=== PATIENT | male | born 1950 | race Two or more races ===

== ENCOUNTER 2024-06-11 11:59 | Emergency (ER) | payer MEDICARE, MEDICAID, SELFPAY ==
[2024-06-11 11:59] VITALS: BMI 34.7
[2024-06-11 12:17] VITALS: BP 170/74; PULSE 59; RESP 18; TEMP 36.7; O2SAT 95; BMI 32.3
--- NOTE | 2024-06-11 14:03 | EDNOTE_ITS ---
<Statement entered by Radha Sen MD - 06/13/24 15:27> As co-signing physician, I was present and available for consult prn. I concur with the plan and care as documented by the midlevel provider. Lower Extremity Injury RME/HPI General Chief Complaint: Extremity Injury, Lower Stated Complaint: RT LEG ABRASION LACERATION Time Seen by Provider: 06/11/24 12:00 Arrival date/time: 06/11/24 11:59 74-year-old male presents to the emergency department today complains of laceration abrasion to right lower extremity patient scraped his leg on a bed frame unknown last tetanus Limitations: no limitations Related Data Home Medications ?Medication ?Instructions ?Recorded ?Confirmed linagliptin 5 mg tablet (Tradjenta) 5 mg PO QDAY 07/13/17 08/14/22 aspirin 81 mg tablet,delayed 81 mg PO DAILY 09/10/17 08/14/22 release (Jaylyn Low Dose Aspirin) glimepiride 4 mg tablet 4 mg PO QDAY 10/08/20 08/14/22 lovastatin 20 mg tablet 20 mg PO HS 10/08/20 08/14/22 albuterol sulfate 90 mcg/actuation 2 inh inhalation DAILY PRN 03/16/22 08/14/22 aerosol inhaler Shortness Of Breath Or Wheezing dapagliflozin propanediol 5 mg 5 mg PO DAILY 03/16/22 08/14/22 tablet (Farxiga) doxazosin 2 mg tablet 2 mg PO HS 03/16/22 08/14/22 finerenone 10 mg tablet (Kerendia) 10 mg PO DAILY 03/16/22 08/14/22 insulin degludec 100 unit/mL (3 See Rx Instructions .Route .COMPLEX 03/16/22 08/14/22 mL) subcutaneous pen (Tresiba FlexTouch U-100 insulin) pregabalin 50 mg capsule 50 mg PO BID 03/16/22 08/14/22 Previous Rx's ?Medication ?Instructions ?Recorded metoclopramide HCl 5 mg tablet 5 mg PO BID #60 tabs 05/18/22 (Reglan) pantoprazole 40 mg tablet,delayed 40 mg PO BID #60 tabs 05/18/22 release (Protonix) amoxicillin 875 mg-potassium 1 tab PO BID #20 tabs 08/10/22 clavulanate 125 mg tablet cephalexin 500 mg capsule 500 mg PO BID 7 days #14 caps 06/11/24 Allergies Allergy/AdvReac Type Severity Reaction Status Date / Time No Known Allergies Allergy Verified 06/11/24 12:01 Review of Systems Review of Systems Systems Reviewed: All systems reviewed, normal except as documented Constitutional Constitutional: Reports system reviewed and no additional complaints, except as documented, Denies fever(s) and Denies headache(s) Eyes Eyes: Reports system reviewed and no additional complaints, except as documented and Denies blurry vision ENT Ears, Nose, Mouth, and Throat: Reports system reviewed and no additional complaints, except as documented, Denies headache(s), Denies nasal congestion and Denies nasal discharge Cardiovascular Cardiovascular: Reports system reviewed and no additional complaints, except as documented, Denies chest pain and Denies dyspnea Respiratory Respiratory: Reports system reviewed and no additional complaints, except as documented, Denies chest congestion, Denies cough and Denies dyspnea Gastrointestinal Gastrointestinal: Reports system reviewed and no additional complaints, except as documented and Denies abdominal pain Integumentary/Breasts Skin/Breast: Reports system reviewed and no additional complaints, except as documented, Denies rash and Reports wounds (Laceration, abrasion right lower extremity) Neurologic Neurologic: Reports system reviewed and no additional complaints, except as documented, Reports as per HPI and Denies headache(s) Past Medical History Past Medical History NEUROLOGIC: Positive Peripheral Neuropathy; Negative Neurological Disorders, Cerebrovascular Accident, Transient Ischemic Attacks (TIA), Dementia, Alzheimer's Disease, Parkinson's Disease, Brain Tumor, Meningitis, Seizures, Epilepsy, Multiple Sclerosis, Cerebral Palsy, Amyotrophic Lateral Sclerosis (ALS/Suki Gehrig's), Guillain-Coy Syndrome, Spina Bifida, Paralysis, Lee's Palsy, Subdural Hematoma, Migraine, Head Trauma, Spinal Cord Injury or Traumatic Brain Injury CARDIAC: Positive Cardiac Disorders, Hypercholesterolemia and Hypertension; Negative Myocardial Infarction, Cardiac Arrhythmia, Atrial Fibrillation, Angina, Heart Murmur, Coronary Artery Disease, Atherosclerotic Heart Disease, Peripheral Vascular Disease, Aneurysm, Congestive Heart Failure, Congenital Heart Disease, Valvular Heart Disease, Rheumatic Fever, Cardiomyopathy, Edema, Pericarditis, Cellulitis, Deep Vein Thrombosis, Hypotension or Varicose Veins RESPIRATORY: Negative Chronic Obstructive Pulmonary Disease (COPD) or Asthma GASTROINTESTINAL: Positive Gastrointestinal Disorders and Obesity; Negative Hepatitis, Cirrhosis, Pancreatitis, Celiac Disease, Gall Bladder Disease, Gastrointestinal Bleed, Esophageal Varices, Osuna's Esophagus, Colitis, Ulcerative Colitis, Diverticulitis, Diverticulosis, Ulcer, Colorectal Cancer, Irritable Bowel, Crohn's Disease, Obstructive Bowel, Hiatal Hernia, Hemorrhoids or Gastroesophageal Reflux Disease GENITOURINARY: Positive Genitourinary Disorders, Renal Disease and Inguinal Hernia; Negative Kidney Stones, Polycystic Kidney Disease, Neurogenic Bladder, Dialysis, Prostate Cancer or Benign Prostatic Hyperplasia REPRODUCTIVE: Negative Testicular Cancer MUSCULOSKELETAL: Positive Musculoskeletal Disorders, Arthritis and Degenerative Disk Disease; Negative Muscular Dystrophy, Myasthenia Gravis, Marfan's Syndrome, Bone Cancer, Rheumatoid Arthritis, Osteoporosis, Gout, Scoliosis, Carpal Tunnel Syndrome, Fibromyalgia, Fractures, Degenerative Joint Disease, Osteomyelitis or Poliovirus ENT: Negative Cataracts, Glaucoma, Blind, Retinal Detachment, Macular Degeneration, Ear Infection, Deafness, Head Trauma or Eye Prosthesis ENDOCRINE: Positive Endocrine Disorders and Diabetes Mellitus Type 2; Negative Diabetes Mellitus Type 1, Hypoglycemia, Jacquelin's Syndrome, Naresh's Disease, Hyperthyroidism, Hypothyroidism, Parathyroid Disease, Pituitary Disease, Systemic Lupus Erythematosus, Syndrome of Inappropriate Antidiuretic Hormone (SIADH), Adrenal Disease or Graves' Disease HEMATOLOGIC: Negative Blood Disorders, Anemia, Leukemia, Hemophilia, Thalassemia, Sickle Cell Disease or Clotting Problems PSYCHO/SOCIAL: Negative Psychiatric Problems, Schizophrenia, Recreational Drug Use, Bipolar Disorder, Depression, Anxiety, Behavior Problems, Self-Mutilation, Attention Deficit Disorder, Attention Deficit Hyperactivity Disorder, Depression, Post Traumatic Stress Disorder or Eating Disorder OTHER HISTORY: Negative Hospitalization, Autoimmune Disease, Down Syndrome, Autism, Developmental Delay, Shingles, Falls, Blood Transfusions, Blood Transfusion Reaction, Anesthesia Reactions, Organ Transplant, Chemotherapy, Radiation Therapy, Hyperbaric Therapy, MRSA, VRSA, Vancomycin-Resistant Enterococci, Human Immunodeficiency Virus (HIV), Chicken Pox, Measles, Mumps, Rubella (Bengali Measles), Pertussis, Clostridium Difficile, Cancer, Colorectal Cancer, Lung Cancer, Ovarian Cancer, Prostate Cancer or Testicular Cancer Family History FAMILY HISTORY: Negative Family Psychiatric Problems, Family Respiratory Disorders, Family Cardiac Disorders, Family Gastrointestinal Problems, Family Cancer, Family Surgery or Family Anesthesia Reaction Surgical History SURGICAL: Positive Abdominal Surgery; Negative Cardiac Surgery, Open Heart Surgery, Coronary Artery Bypass Graft, Valve Replacement, Vascular Surgery, Coronary Stent, Cardiac Catheterization, Pacemaker, Angiogram, Auto Implanted Cardiovert Defib, Carotid Endarterectomy, Endocrine Surgery, Thyroidectomy, Ear Surgery, Tympanostomy Tube, Eye Surgery, Nose Surgery, Oral Surgery, Tonsillectomy, Adenoidectomy, Cochlear Implant, Corneal Transplant, Throat Surgery, Tracheostomy, Gastric Bypass Surgery, Gas trostomy, Bowel Surgery, Nephrectomy, Transurethral Resection, Joint Replacement, Amputation, Open Reduction Internal Fixation, Arthroscopy, Vasectomy or Organ Transplant Social History SMOKING STATUS: Never smoker SECOND HAND EXPOSURE: No SUBSTANCE USE: does not use ED Exam General Limitations: Present no limitations General appearance: Present alert and in no apparent distress Head Head exam: Present atraumatic Eye Eye exam: Present normal appearance, PERRL and EOMI ENT ENT exam: Present normal exam, normal oropharynx and mucous membranes moist Neck Neck exam: Present normal inspection, full ROM and trachea midline Chest Chest inspection: Present normal inspection and symmetric chest wall rise Respiratory Respiratory exam: Present normal lung sounds bilaterally Cardiovascular Cardiovascular exam: Present regular rate, normal rhythm and normal heart sounds Abdominal Exam Abdominal exam: Present soft and normal bowel sounds Extremities Exam Extremities exam: Present full ROM, tenderness, normal capillary refill and othe r (Laceration abrasion right lower extremity) Back Exam Back exam: Present normal inspection and full ROM Neurological Exam Neurological exam: Present alert, oriented X3 and CN II-XII intact Psychiatric Psychiatric exam: Present normal affect and normal mood Skin Skin exam: Present warm, dry and other (Laceration, abrasion right lower extremity) Course Quality Measures none Orders Category Date Time Status Set Up Suture Tray STAT Care 06/11/24 12:47 Active Wound Care NOW Care 06/11/24 12:47 Active Lidocaine 1% 20 ml [Xylocaine 1% 20 ML] Med 06/11/24 12:47 Discontinued 20 ml INFL X1 ONE Tet,Diphth,Pertuss(Acell)-Tdap [Boostrix Vacc] Med 06/11/24 12:47 Discontinued 0.5 ml IMI .ONCE ONE Vital Signs Vital signs: Vital Signs Temperature 98.1 F 06/11/24 12:17 Pulse Rate 59 L 06/11/24 12:17 Respiratory Rate 18 06/11/24 12:17 Blood Pressure 170/74 H 06/11/24 12:17 Pulse Oximetry (%) 95 06/11/24 12:17 Oxygen Delivery Method Room Air 06/11/24 12:17 O2 saturation 95% room air within normal limits Procedures -ED Laceration Laceration 1: Site: lower extremity Side (If applicable): right Size (cm): 6 Description: irregular Depth: simple, single layer Local Anesthetic: lidocaine 1% Amount of anesthesia used (mL): 10 Pre-repair: irrigated extensively Skin layer closed with: nylon Size (cm): 4-0 and 5-0 Number of sutures: 17 Technique: simple, interrupted Extremity Injury, Lower MDM Narrative MDM Narrative:: 74-year-old male presents to the emergency department today complains of laceration abrasion to right lower extremity patient scraped his leg on a bed frame unknown last tetanus On exam patient is abrasion left lower extremity as well as laceration and associated skin tear I approximated the wound laceration and skin tear applied 17 sutures wound is well-approximated with no active bleeding at time of discharge Tetanus updated and discharged home on antibiotics Patient instructed to have sutures removed in 10 to 14 days Patient discharged home in no distress to follow-up with primary care doctor in the next 24 to 48 hours and for any worsening symptoms to return to the ER immediately Patient data External records reviewed:: [facility] previous records Clinical information provided by:: patient Social determinants that could affect healthcare access:: none Patient has the following chronic illnesses:: See history How is presenting disease/condition affected by chronic disease/condition?: uneffected by Evaluation data The following diagnostics were reviewed and interpreted by me:: other (specify) (N/A) Lab and/or radiology exams considered but not ordered:: Consider not ordered Interpretation Summary: N/A Medications / Prescriptions Medications or Prescriptions considered but not ordered:: Given Medication administrations:: Medication Administration History Discontinued Medications Diphtheria/Tetanus/Acell Pertussis (Diphth,Pertuss(Acell),Tet Vac 0.5 Ml Vial) 0.5 ml IMi .ONCE ONE Stop: 06/11/24 12:48 Last Admin: 06/11/24 14:11 Dose: 0.5 ml Documented By: Lidocaine HCl (Lidocaine Hcl 1% 20 Ml Vial) 20 ml INFL X1 ONE Stop: 06/11/24 12:48 Last Admin: 06/11/24 14:10 Dose: 20 ml Documented By: Given Consultations Consultation(s) initiated? (list below): No Diagnosis Extremity Injury, Lower Differential Diagnosis: other (Laceration no abrasion) Most likely diagnosis given after review of the tests above:: Superficial laceration Admission Indicated Admission indicated?: not indicated Admission Request Was there a request for admission?: No Disposition Plan Disposition Plan: Discharge Discharge Attestation Discharge Attestation: The patient and all family members were given an opportunity to ask questions and understood the discharge instructions. Discharge instructions specifically effects, indications for sooner follow up or return to the emergency department, and the expected course of current diagnosis. Patient condition: Stable Discharge Plan Plan Patient Disposition: HOME (Self Care) Disposition Comment: Stable Prescriptions/Referrals Prescriptions/Med Rec: New cephalexin 500 mg capsule 500 mg PO BID 7 Days Qty: 14 0RF No Action Tradjenta 5 mg Tablet 5 mg PO QDAY aspirin [Jaylyn Low Dose Aspirin] 81 mg Tablet,Delayed Release (Dr/Ec) 81 mg PO DAILY glimepiride 4 mg tablet 4 mg PO QDAY lovastatin 20 mg Tablet 20 mg PO HS pantoprazole [Protonix] 40 mg Tablet,Delayed Release (Dr/Ec) 40 mg PO BID Qty: 60 2RF Rx Instructions: Take 1 tablet by mouth twice daily metoclopramide HCl [Reglan] 5 mg Tablet 5 mg PO BID Qty: 60 2RF Rx Instructions: take 1 tablet by mouth twice daily amoxicillin-pot clavulanate 875-125 mg tablet 1 tab PO BID Qty: 20 0RF albuterol sulfate 90 mcg/actuation HFA aerosol inhaler 2 inh INHALATION DAILY PRN (Reason: Shortness Of Breath Or Wheezing) doxazosin 2 mg tablet 2 mg PO HS pregabalin 50 mg capsule 50 mg PO BID Rx Instructions: TAKE 1 CAPSULE BY MOUTH EVERYD AY IN THE MORNING AND 2 CAPSULES AT NIGHT Farxiga 5 mg tablet 5 mg PO DAILY Kerendia 10 mg tablet 10 mg PO DAILY Patient Comments: TAKE 1 TABLET BY MOUTH EVERY DAY FOR KIDNEYS insulin degludec [Tresiba FlexTouch U-100] 100 unit/mL (3 mL) insulin pen See Rx Instructions .ROUTE .COMPLEX Rx Instructions: SLIDING SCALE Referrals: Jan Rawls MD [Primary Care Provider] - In 1 week Problem List Clinical Impression: Laceration of right lower leg Patient/Caregiver Discharge Instructions Education Materials: ED Scar Tips to Minimize Additional Instructions: Please follow up with your primary care doctor in the next 24-48hrs for any worsening symptoms return here immediately Please have sutures removed in 10 to 14 days Print Language: Sudanese Stand Alone Forms: Maya Award Info., Patient Portal Info Letter Vaccines Vaccines Given During Stay: TDSindhu COOPER/ORDER PICKER/ASSEMBLER Supervising Physician PA/ORDER PICKER/ASSEMBLER Supervising Physician: Dr. SEN
[2024-06-11] MEDS: LIDOCAINE HCL 1% 20 ML VIAL INFL (14:10)
[2024-06-11] MEDS: DIPHTH,PERTUSS(ACELL),TET VAC 0.5 ML VIAL IMi (14:11)
== END 2024-06-11 14:15 | disposition home or self-care (01) ==
PROVIDERS: Emergency Provider Emergency Medicine; PCP Family Medicine
DX: S81.811A Laceration without foreign body, right lower leg, initial encounter (principal); W19.XXXA Unspecified fall, initial encounter; Z23 Encounter for immunization
CPT/HCPCS: 12002; 90471; 90715; 99283; J3490

== ENCOUNTER → 2024-06-19 | Outpatient (CLI) | payer MEDICARE, MEDICAID, SELFPAY | END | disposition home or self-care (01) | PROVIDERS: Visit Provider Student in an Organized Health Care Education/Training Program | DX: S81.801A Unspecified open wound, right lower leg, initial encounter (principal); X58.XXXA Exposure to other specified factors, initial encounter; I10 Essential (primary) hypertension; E11.40 Type 2 diabetes mellitus with diabetic neuropathy, unspecified; Z79.4 Long term (current) use of insulin; M19.042 Primary osteoarthritis, left hand; M19.041 Primary osteoarthritis, right hand | CPT/HCPCS: 99214; A9270; G0463 ==

== ENCOUNTER 2024-06-23 13:25 | Emergency (ER) | payer MEDICARE, MEDICAID, SELFPAY ==
[2024-06-23 13:27] VITALS: BMI 32.3
[2024-06-23 13:34] VITALS: BP 160/73; PULSE 58; RESP 18; TEMP 36.8; O2SAT 96
--- NOTE | 2024-06-23 13:36 | XR_ITS ---
Examination: Tibia-Fibula, right , 2 views Technique: Tibia-fibula AP lateral 2 views Date and time of exam: June 23, 2024 1352 hours INDICATIONS: Patient fell 3 days ago with into the lower leg, lower leg swelling and pain. FINDINGS: Moderate osteopenia No fracture or dislocation No foreign body IMPRESSION: No fracture or dislocation:
--- NOTE | 2024-06-23 13:36 | EDNOTE_ITS ---
Lower Extremity Injury RME/HPI General Chief Complaint: Extremity Injury, Lower Stated Complaint: right leg pain Time Seen by Provider: 06/23/24 13:28 Arrival date/time: 06/23/24 13:25 74-year-old male presents to the emergency department today with complaints of erythema at suture site right lower leg patient had previous injury 06/11 requiring sutures and at the suture site patient developed erythema patient at that time was given a prescription for Keflex and has since been started on doxycycline patient's son is a physician who requested the patient have lab work and imaging today for further evaluation Limitations: no limitations Related Data Home Medications ?Medication ?Instructions ?Recorded ?Confirmed linagliptin 5 mg tablet (Tradjenta) 5 mg PO QDAY 07/13/17 08/14/22 aspirin 81 mg tablet,delayed 81 mg PO DAILY 09/10/17 08/14/22 release (Jaylyn Low Dose Aspirin) glimepiride 4 mg tablet 4 mg PO QDAY 10/08/20 08/14/22 lovastatin 20 mg tablet 20 mg PO HS 10/08/20 08/14/22 albuterol sulfate 90 mcg/actuation 2 inh inhalation DAILY PRN 03/16/22 08/14/22 aerosol inhaler Shortness Of Breath Or Wheezing dapagliflozin propanediol 5 mg 5 mg PO DAILY 03/16/22 08/14/22 tablet (Farxiga) doxazosin 2 mg tablet 2 mg PO HS 03/16/22 08/14/22 finerenone 10 mg tablet (Kerendia) 10 mg PO DAILY 03/16/22 08/14/22 insulin degludec 100 unit/mL (3 See Rx Instructions .Route .COMPLEX 03/16/22 08/14/22 mL) subcutaneous pen (Tresiba FlexTouch U-100 insulin) pregabalin 50 mg capsule 50 mg PO BID 03/16/22 08/14/22 Previous Rx's ?Medication ?Instructions ?Recorded metoclopramide HCl 5 mg tablet 5 mg PO BID #60 tabs 05/18/22 (Reglan) pantoprazole 40 mg tablet,delayed 40 mg PO BID #60 tabs 05/18/22 release (Protonix) amoxicillin 875 mg-potassium 1 tab PO BID #20 tabs 08/10/22 clavulanate 125 mg tablet Allergies Allergy/AdvReac Type Severity Reaction Status Date / Time No Known Allergies Allergy Verified 06/11/24 12:01 Review of Systems Review of Systems Systems Reviewed: All systems reviewed, normal except as documented Constitutional Constitutional: Reports system reviewed and no additional complaints, except as documented, Denies fever(s) and Denies headache(s) Eyes Eyes: Reports system reviewed and no additional complaints, except as documented and Denies blurry vision ENT Ears, Nose, Mouth, and Throat: Reports system reviewed and no additional complaints, except as documented, Denies headache(s), Denies nasal congestion and Denies nasal discharge Cardiovascular Cardiovascular: Reports system reviewed and no additional complaints, except as documented, Denies chest pain and Denies dyspnea Respiratory Respiratory: Reports system reviewed and no additional complaints, except as documented, Denies chest congestion, Denies cough and Denies dyspnea Gastrointestinal Gastrointestinal: Reports system reviewed and no additional complaints, except as documented and Denies abdominal pain Integumentary/Breasts Skin/Breast: Reports system reviewed and no additional complaints, except as documented, Denies rash and Reports other (Erythema, mild cellulitis right lynn) Neurologic Neurologic: Reports system reviewed and no additional complaints, except as documented, Reports as per HPI and Denies headache(s) Past Medical History Past Medical History NEUROLOGIC: Positive Peripheral Neuropathy; Negative Neurological Disorders, Cerebrovascular Accident, Transient Ischemic Attacks (TIA), Dementia, Alzheimer's Disease, Parkinson's Disease, Brain Tumor, Meningitis, Seizures, Epilepsy, Multiple Sclerosis, Cerebral Palsy, Amyotrophic Lateral Sclerosis (ALS/Suki Gehrig's), Guillain-Columbia Syndrome, Spina Bifida, Paralysis, Lee's Palsy, Subdural Hematoma, Migraine, Head Trauma, Spinal Cord Injury or Traumatic Brain Injury CARDIAC: Positive Cardiac Disorders, Hypercholesterolemia and Hypertension; Negative Myocardial Infarction, Cardiac Arrhythmia, Atrial Fibrillation, Angina, Heart Murmur, Coronary Artery Disease, Atherosclerotic Heart Disease, Peripheral Vascular Disease, Aneurysm, Congestive Heart Failure, Congenital Heart Disease, Valvular Heart Disease, Rheumatic Fever, Cardiomyopathy, Edema, Pericarditis, Cellulitis, Deep Vein Thrombosis, Hypotension or Varicose Veins RESPIRATORY: Negative Chronic Obstructive Pulmonary Disease (COPD) or Asthma GASTROINTESTINAL: Positive Gastrointestinal Disorders and Obesity; Negative Hepatitis, Cirrhosis, Pancreatitis, Celiac Disease, Gall Bladder Disease, Gastrointestinal Bleed, Esophageal Varices, Osuna's Esophagus, Colitis, Ulcerative Colitis, Diverticulitis, Diverticulosis, Ulcer, Colorectal Cancer, Irritable Bowel, Crohn's Disease, Obstructive Bowel, Hiatal Hernia, Hemorrhoids or Gastroesophageal Reflux Disease GENITOURINARY: Positive Genitourinary Disorders, Renal Disease and Inguinal Hernia; Negative Kidney Stones, Polycystic Kidney Disease, Neurogenic Bladder, Dialysis, Prostate Cancer or Benign Prostatic Hyperplasia REPRODUCTIVE: Negative Testicular Cancer MUSCULOSKELETAL: Positive Musculoskeletal Disorders, Arthritis and Degenerative Disk Disease; Negative Muscular Dystrophy, Myasthenia Gravis, Marfan's Syndrome, Bone Cancer, Rheumatoid Arthritis, Osteoporosis, Gout, Scoliosis, Carpal Tunnel Syndrome, Fibromyalgia, Fractures, Degenerative Joint Disease, Osteomyelitis or Poliovirus ENT: Negative Cataracts, Glaucoma, Blind, Retinal Detachment, Macular Degeneration, Ear Infection, Deafness, Head Trauma or Eye Prosthesis ENDOCRINE: Positive Endocrine Disorders and Diabetes Mellitus Type 2; Negative Diabetes Mellitus Type 1, Hypoglycemia, Jacquelin's Syndrome, Naresh's Disease, Hyperthyroidism, Hypothyroidism, Parathyroid Disease, Pituitary Disease, Systemic Lupus Erythematosus, Syndrome of Inappropriate Antidiuretic Hormone (SIADH), Adrenal Disease or Graves' Disease HEMATOLOGIC: Negative Blood Disorders, Anemia, Leukemia, Hemophilia, Thalassemia, Sickle Cell Disease or Clotting Problems PSYCHO/SOCIAL: Negative Psychiatric Problems, Schizophrenia, Recreational Drug Use, Bipolar Disorder, Depression, Anxiety, Behavior Problems, Self-Mutilation, Attention Deficit Disorder, Attention Deficit Hyperactivity Disorder, Depression, Post Traumatic Stress Disorder or Eating Disorder OTHER HISTORY: Negative Hospitalization, Autoimmune Disease, Down Syndrome, Autism, Developmental Delay, Shingles, Falls, Blood Transfusions, Blood Transfusion Reaction, Anesthesia Reactions, Organ Transplant, Chemotherapy, Radiation Therapy, Hyperbaric Therapy, MRSA, VRSA, Vancomycin-Resistant Enterococci, Human Immunodeficiency Virus (HIV), Chicken Pox, Measles, Mumps, Rubella (Georgian Measles), Pertussis, Clostridium Difficile, Cancer, Colorectal Cancer, Lung Cancer, Ovarian Cancer, Prostate Cancer or Testicular Cancer Family History FAMILY HISTORY: Negative Family Psychiatric Problems, Family Respiratory Disorders, Family Cardiac Disorders, Family Gastrointestinal Problems, Family Cancer, Family Surgery or Family Anesthesia Reaction Surgical History SURGICAL: Positive Abdominal Surgery; Negative Cardiac Surgery, Open Heart Surgery, Coronary Artery Bypass Graft, Valve Replacement, Vascular Surgery, Coronary Stent, Cardiac Catheterization, Pacemaker, Angiogram, Auto Implanted Cardiovert Defib, Carotid Endarterectomy, Endocrine Surgery, Thyroidectomy, Ear Surgery, Tympanostomy Tube, Eye Surgery, Nose Surgery, Oral Surgery, Tonsillectomy, Adenoidectomy, Cochlear Implant, Corneal Transplant, Throat Surgery, Tracheostomy, Gastric Bypass Surgery, Gastrostomy, Bowel Surgery, Nephrectomy, Transurethral Resection, Joint Replacement, Amputation, Open Reduction Internal Fixation, Arthroscopy, Vasectomy or Organ Transplant Social History SMOKING STATUS: Never smoker SECOND HAND EXPOSURE: No SUBSTANCE USE: does not use ED Exam General Limitations: Present no limitations General appearance: Present alert and in no apparent distress Head Head exam: Present atraumatic, normocephalic and normal inspection Eye Eye exam: Present normal appearance, PERRL and EOMI ENT ENT exam: Present normal exam, normal oropharynx and mucous membranes moist Neck Neck exam: Present normal inspection, full ROM and trachea midline Chest Chest inspection: Present normal inspection and symmetric chest wall rise Respiratory Respiratory exam: Present normal lung sounds bilaterally Cardiovascular Cardiovascular exam: Present regular rate, normal rhythm and normal heart sounds Abdominal Exam Abdominal exam: Present soft and normal bowel sounds Extremities Exam Extremities exam: Present normal inspection and full ROM Back Exam Back exam: Present normal inspection and full ROM Neurological Exam Neurological exam: Present alert, oriented X3, CN II-XII intact, normal gait and reflexes normal; Absent motor sensory deficit Psychiatric Psychiatric exam: Present normal affect and normal mood Skin Skin exam: Present warm, dry, intact and other (Erythema, mild cellulitis right lynn) Course Quality Measures none Orders Category Date Time Status Insert IV NOW Care 06/23/24 13:41 Active US venous doppler LE RT Stat Exams 06/23/24 13:36 Completed XR tibia fibula RT 2V Stat Exams 06/23/24 13:36 Completed A1C [Glycohemoglobin w (eAG)] Stat Lab 06/23/24 14:07 Completed Blood Culture (Lab) Stat Lab 06/23/24 14:22 Received CBC Stat Lab 06/23/24 14:07 Completed CMP [Comprehensive Metabolic Panel] Stat Lab 06/23/24 14:07 Completed CRP [C-Reactive Protein] Stat Lab 06/23/24 14:07 Completed ESR [Sed Rate (ESR)] Stat Lab 06/23/24 14:07 Completed Lactic Acid [Lactate (Lactic Acid)] Stat Lab 06/23/24 14:07 Completed Procalcitonin Stat Lab 06/23/24 14:07 Completed HYDROcodone*/APAP 5/325 [[place] 5/325] Med 06/23/24 13:40 Discontinued 1 tab PO X1 ONE Piper/Tazo 3.375 gm [Zosyn] Med 06/23/24 13:40 Discontinued 3.375 gm in 50 ml IV X1 Vancomycin Inj 1,000 mg Med 06/23/24 13:41 Discontinued Sodium Chloride 0.9% 250 ml [Ns] 250 ml IV X1 Vital Signs Vital signs: Vital Signs Temperature 98.2 F 06/23/24 13:34 Pulse Rate 58 L 06/23/24 13:34 Respiratory Rate 18 06/23/24 13:34 Blood Pressure 160/73 H 06/23/24 13:34 Pulse Oximetry (%) 96 06/23/24 13:34 Oxygen Delivery Method Room Air 06/23/24 13:34 O2 saturation 96% room air within normal limits Extremity Injury, Lower MDM Narrative MDM Narrative:: 74-year-old male presents to the emergency department today with complaints of erythema at suture site right lower leg patient had previous injury 06/11 requi ring sutures and at the suture site patient developed erythema patient at that time was given a prescription for Keflex and has since been started on doxycycline patient's son is a physician who requested the patient have lab work and imaging today for further evaluation On exam patient does have erythema right lower extremity the redness is not circumferential and is localized to the suture site Currently patient is on doxycycline. Patient given 1 dose of Zosyn as well as vancomycin here Lab work obtained no leukocytosis noted CRP is within normal limits lactic and Pro-Rizwan are normal Ultrasound as well as x-ray obtained no acute emergent findings noted Consultation: Patient's son is a hospitalist here in the hospital I asked him to come evaluate his father he reports on exam the redness is significantly better and he does not request any further antibiotic treatment at home as the patient is currently on doxycycline Patient will follow-up with wound care and for any worsening symptoms or concerns he will return immediately Patient data External records reviewed:: [facility] previous records Clinical information provided by:: patient Social determinants that could affect healthcare access:: none Patient has the following chronic illnesses:: None How is presenting disease/condition affected by chronic disease/condition?: no chronic disease Evaluation data The following diagnostics were reviewed and interpreted by me:: lab results and radiology exam(s) Lab and/or radiology exams considered but not ordered:: Labs and radiology obtained Interpretation Summary: Reviewed by me Medications / Prescriptions Medications or Prescriptions considered but not ordered:: Given Medication administrations:: Medication Administration History Discontinued Medications Hydrocodone Bitart/Acetaminophen (Hydrocodone/Apap 5/325 Tablet) 1 tab PO X1 ONE Stop: 06/23/24 13:41 Last Admin: 06/23/24 14:14 Dose: 1 tab Documented By: SHERIE Piperacillin/Tazobactam/Dextrose (Zosyn) 3.375 gm in 50 mls @ 100 mls/hr IV X1 ONE Stop: 06/23/24 14:09 Last Infusion: 06/23/24 15:00 Dose: Infused Documented By: Admin: 06/23/24 14:28 Dose: 100 mls/hr Documented By: SHERIE Vancomycin HCl 1,000 mg/ (Sodium Chloride) 250 mls @ 150 mls/hr IV X1 ONE Stop: 06/23/24 15:20 Last Admin: 06/23/24 15:04 Dose: 150 mls/hr Documented By: SHERIE Given Consultations Consultation(s) initiated? (list below): Yes Consultation #1 (Physician, Specialty, Details): Dr. Rhoades Diagnosis Extremity Injury, Lower Differential Diagnosis: other (Abscess, cellulitis) Most likely diagnosis given after review of the tests above:: Cellulitis Admission Indicated Admission indicated?: not indicated Admission Request Was there a request for admission?: No Disposition Plan Disposition Plan: Discharge Discharge Attestation Discharge Attestation: The patient and all family members were given an opportunity to ask questions and understood the discharge instructions. Discharge instructions specifically effects, indications for sooner follow up or return to the emergency department, and the expected course of current diagnosis. Patient condition: Stable Discharge Plan Plan Patient Disposition: HOME (Self Care) Disposition Comment: Stable Prescriptions/Referrals Prescriptions/Med Rec: No Action Tradjenta 5 mg Tablet 5 mg PO QDAY aspirin [Jaylyn Low Dose Aspirin] 81 mg Tablet,Delayed Release (Dr/Ec) 81 mg PO DAILY glimepiride 4 mg tablet 4 mg PO QDAY lovastatin 20 mg Tablet 20 mg PO HS pantoprazole [Protonix] 40 mg Tablet,Delayed Release (Dr/Ec) 40 mg PO BID Qty: 60 2RF Rx Instructions: Take 1 tablet by mouth twice daily metoclopramide HCl [Reglan] 5 mg Tablet 5 mg PO BID Qty: 60 2RF Rx Instructions: take 1 tablet by mouth twice daily amoxicillin-pot clavulanate 875-125 mg tablet 1 tab PO BID Qty: 20 0RF albuterol sulfate 90 mcg/actuation HFA aerosol inhaler 2 inh INHALATION DAILY PRN (Reason: Shortness Of Breath Or Wheezing) doxazosin 2 mg tablet 2 mg PO HS pregabalin 50 mg capsule 50 mg PO BID Rx Instructions: TAKE 1 CAPSULE BY MOUTH EVERYD AY IN THE MORNING AND 2 CAPSULES AT NIGHT Farxiga 5 mg tablet 5 mg PO DAILY Kerendia 10 mg tablet 10 mg PO DAILY Patient Comments: TAKE 1 TABLET BY MOUTH EVERY DAY FOR KIDNEYS insulin degludec [Tresiba FlexTouch U-100] 100 unit/mL (3 mL) insulin pen See Rx Instructions .ROUTE .COMPLEX Rx Instructions: SLIDING SCALE Referrals: Jan Rawls MD [Primary Care Provider] - 06/24/24 Problem List Clinical Impression: Cellulitis of leg, right Patient/Caregiver Discharge Instructions Education Materials: ED Cellulitis Additional Instructions: Please follow up with your primary care doctor in the next 24-48hrs for any worsening symptoms return here immediately Please take all antibiotics as prescribed Print Language: Albanian Stand Alone Forms: Maya Award Info., Patient Portal Info Letter PA/DONNY Supervising Physician KENNETH/DONNY Supervising Physician: dr duarte
--- NOTE | 2024-06-23 13:36 | XR_ITS ---
Examination: Duplex scan of the lower extremity, unilateral right complete Date and time of exam: June 23, 2024 1434 hours INDICATIONS: Nonhealing wound in the right lower leg post injury 2 weeks ago Technique: Duplex scan of the extremity veins using B-mode/grayscale imaging and Doppler spectral analysis and color flow Attention is directed to internal echogenicity, compression and augmentation involving these veins, color flow assessment, spectral analysis Findings: Major deep venous structures in the extremity demonstrate normal course and caliber. There is no evidence of deep vein thrombosis. Normal color flow and spectral analysis Impression: Negative for DVT..
[2024-06-23 14:10] VITALS: BP 171/74; PULSE 57; RESP 16; O2SAT 96
[2024-06-23] MEDS: HYDROcodone/APAP 5/325 TABLET 1 TAB PO (14:14)
[2024-06-23 14:26] LABS: Lactate (Lactic Acid) 1.6 mMol/L (0.4-2.0)
--- NOTE | 2024-06-23 14:26 | PC.NURSE ---
pt here with c/o redness to scabbed chiara right lower leg that has been there 14 days
[2024-06-23] MEDS: PIPER/TAZO 3.375 GM 3.375 GM/50 ML BAG IV (14:28)
[2024-06-23 14:38] LABS: Basophils # (Auto) 0.1 Thou/mm3 (0.0-0.2); Basophils % (Auto) 1 % (0-2.5); Eosinophils # (Auto) 0.4 Thou/mm3 (0.0-0.5); Eosinophils % (Auto) 6 % (0-10); Hematocrit 43.7 % (41.0-53.0); Hemoglobin 14.5 g/dL (13.5-16.0); Immature Granulocytes % (Auto) 1 % (0-0); Immature Granulocytes Auto 0.05 Thou/mm3 (0.00-0.00); Lymphocytes # (Auto) 2.6 Thou/mm3 (1.0-4.8); Lymphocytes % (Auto) 40 % (10-50); Mean Corpuscular HGB Conc 33.2 g/dl (31.0-37.0); Mean Corpuscular Hemoglobin 27.7 pg (25.0-35.0); Mean Corpuscular Volume 84 fL (80-100); Monocytes # (Auto) 0.5 Thou/mm3 (0.0-0.8); Monocytes % (Auto) 8 % (0-12); Neutrophils # (Auto) 2.9 Thou/mm3 (1.8-7.7); Neutrophils % (Auto) 44 % (37-80); Nucleated Red Blood Cell % 0 /100 WBC (0); Platelet Count 188 Thou/mm3 (140-440); RDW Standard Deviation 42.6 fL (35.1-43.9); Red Blood Count 5.23 Miln/mm3 (4.50-5.90); White Blood Count 6.6 Thou/mm3 (3.8-10.6)
[2024-06-23 14:49] LABS: Glucose Estimated Average 160 mg/dL (80-131); Hemoglobin A1C 7.2 % Hgb (4.8-6.0)
[2024-06-23 15:04] LABS: Alanine Aminotransferase 9 U/L (10-49); Albumin, Serum 4.6 gm/dL (3.4-4.8); Albumin/Globulin Ratio 1.8 (1.2-2.2); Alkaline Phosphatase 38 U/L (46-116); Anion Gap 9 (7-16); Aspartate Amino Transferase 13 U/L (0-34); BUN/Creatinine Ratio 16 Ratio (12-20); Bilirubin,Total 0.4 mg/dL (0.3-1.2); Blood Urea Nitrogen 25 mg/dL (9-23); C-Reactive Protein 0.6 mg/dL (0.0-0.9); Calcium 9.5 mg/dL (8.3-10.6); Calcium (Corrected) 9.5 mg/dL (8.5-10.1); Carbon Dioxide 24.8 mMol/L (20.0-31.0); Chloride 101 mMol/L (98-107); Creatinine (Component) 1.6 mg/dL (0.6-1.3); Estimated Creatinine Clearance 41.4 mL/min (>60); Globulin 2.5 gm/dL (2.3-3.5); Glucose 188 mg/dL (74-106); Osmolality,Calculated 279 (275-295); Potassium 4.1 mMol/L (3.4-5.1); Procalcitonin 0.11 ng/ml (0.0-0.49); Sodium 135 mMol/L (136-145); Total Protein 7.1 gm/dL (5.7-8.2); eGFR 44 See Note
[2024-06-23] MEDS: Vancomycin Inj 1,000 MG in SODIUM CHLORIDE 0.9% 250 ML 250 ML 150 MG IV (15:04)
[2024-06-23 15:19] LABS: Sed Rate (ESR) 27 mm/hr (0-20)
[2024-06-23 16:00] VITALS: BP 144/67; PULSE 57; RESP 16; TEMP 36.6; O2SAT 95
== END 2024-06-23 16:55 | disposition home or self-care (01) ==
PROVIDERS: Nurse Practitioner Primary Care; Emergency Provider Emergency Medicine; PCP Family Medicine
DX: L03.115 Cellulitis of right lower limb (principal); T14.90XS Injury, unspecified, sequela; W19.XXXS Unspecified fall, sequela
CPT/HCPCS: 36415; 73590; 80053; 83036; 83605; 84145; 85025; 85652; 86140; 87040; 93971; 96365; 96367; 99284; J2543; J3371; J7050; A9270

== ENCOUNTER → 2024-06-26 | Outpatient (CLI) | payer MEDICARE, MEDICAID, SELFPAY | END | disposition home or self-care (01) | LOC: SWHD 15:05 | PROVIDERS: PCP Family Medicine; Referring Provider Family Medicine; Visit Provider Student in an Organized Health Care Education/Training Program | DX: S81.801A Unspecified open wound, right lower leg, initial encounter (principal); X58.XXXA Exposure to other specified factors, initial encounter; I10 Essential (primary) hypertension; E11.40 Type 2 diabetes mellitus with diabetic neuropathy, unspecified; Z79.4 Long term (current) use of insulin; M19.041 Primary osteoarthritis, right hand; M19.042 Primary osteoarthritis, left hand | CPT/HCPCS: 11042 ==

== ENCOUNTER → 2024-06-27 | Outpatient (CLI) | payer MEDICARE, MEDICAID, SELFPAY ==
--- NOTE | 2024-06-27 08:40 | XR_ITS ---
Examination: Tibia-Fibula, right , 2 views Technique: Tibia-fibula AP lateral 2 views Date and time of exam: June 27, 2024 0901 hours INDICATIONS: Injury to the lower leg June 11, 2024 with persistent lower leg pain. FINDINGS: No acute fracture No dislocation No foreign body IMPRESSION: No acute fracture
[2024-06-27 10:41] LABS: Basophils # (Auto) 0.1 Thou/mm3 (0.0-0.2); Basophils % (Auto) 1 % (0-2.5); Eosinophils # (Auto) 0.3 Thou/mm3 (0.0-0.5); Eosinophils % (Auto) 6 % (0-10); Hematocrit 46.3 % (41.0-53.0); Immature Granulocytes % (Auto) 1 % (0-0); Immature Granulocytes Auto 0.04 Thou/mm3 (0.00-0.00); Lymphocytes # (Auto) 2.4 Thou/mm3 (1.0-4.8); Lymphocytes % (Auto) 42 % (10-50); Mean Corpuscular HGB Conc 32.4 g/dl (31.0-37.0); Mean Corpuscular Hemoglobin 27.4 pg (25.0-35.0); Mean Corpuscular Volume 85 fL (80-100); Monocytes # (Auto) 0.5 Thou/mm3 (0.0-0.8); Monocytes % (Auto) 8 % (0-12); Neutrophils # (Auto) 2.4 Thou/mm3 (1.8-7.7); Neutrophils % (Auto) 42 % (37-80); Nucleated Red Blood Cell % 0 /100 WBC (0); Platelet Count 232 Thou/mm3 (140-440); RDW Standard Deviation 42.5 fL (35.1-43.9); Red Blood Count 5.47 Miln/mm3 (4.50-5.90); White Blood Count 5.8 Thou/mm3 (3.8-10.6)
[2024-06-27 10:49] LABS: Glucose Estimated Average 163 mg/dL (80-131); Hemoglobin A1C 7.3 % Hgb (4.8-6.0)
[2024-06-27 11:04] LABS: Alanine Aminotransferase 11 U/L (10-49); Albumin, Serum 4.4 gm/dL (3.4-4.8); Albumin/Globulin Ratio 1.9 (1.2-2.2); Alkaline Phosphatase 40 U/L (46-116); Anion Gap 6 (7-16); Aspartate Amino Transferase 16 U/L (0-34); BUN/Creatinine Ratio 12 Ratio (12-20); Bilirubin,Total 0.5 mg/dL (0.3-1.2); Blood Urea Nitrogen 21 mg/dL (9-23); Calcium 9.2 mg/dL (8.3-10.6); Calcium (Corrected) 9.2 mg/dL (8.5-10.1); Carbon Dioxide 28.5 mMol/L (20.0-31.0); Chloride 106 mMol/L (98-107); Creatinine (Component) 1.7 mg/dL (0.6-1.3); Globulin 2.3 gm/dL (2.3-3.5); Glucose 109 mg/dL (74-106); Osmolality,Calculated 283 (275-295); Sodium 140 mMol/L (136-145); Total Protein 6.7 gm/dL (5.7-8.2); eGFR 41 See Note
== END | disposition home or self-care (01) ==
LOC: CDIM 08:23 → COPL 09:35
PROVIDERS: Referring Provider Student in an Organized Health Care Education/Training Program; Visit Provider Radiology Diagnostic Radiology
DX: S81.811A Laceration without foreign body, right lower leg, initial encounter (principal); E11.622 Type 2 diabetes mellitus with other skin ulcer; S81.801A Unspecified open wound, right lower leg, initial encounter; L03.115 Cellulitis of right lower limb; E11.65 Type 2 diabetes mellitus with hyperglycemia; X58.XXXA Exposure to other specified factors, initial encounter
CPT/HCPCS: 36415; 73590; 80053; 83036; 85025

== ENCOUNTER → 2024-07-03 | Outpatient (CLI) | payer MEDICARE, MEDICAID, SELFPAY | END | disposition home or self-care (01) | PROVIDERS: PCP Family Medicine; Referring Provider Family Medicine; Visit Provider Surgery | DX: S81.801A Unspecified open wound, right lower leg, initial encounter (principal); X58.XXXA Exposure to other specified factors, initial encounter; I10 Essential (primary) hypertension; E11.40 Type 2 diabetes mellitus with diabetic neuropathy, unspecified; Z79.4 Long term (current) use of insulin; M19.041 Primary osteoarthritis, right hand; M19.042 Primary osteoarthritis, left hand | CPT/HCPCS: 11042; A9270 ==

== ENCOUNTER → 2024-07-10 | Outpatient (CLI) | payer MEDICARE, MEDICAID, SELFPAY | END | disposition home or self-care (01) | LOC: SWHD 15:05 | PROVIDERS: PCP Family Medicine; Referring Provider Family Medicine; Visit Provider Student in an Organized Health Care Education/Training Program | DX: S81.801A Unspecified open wound, right lower leg, initial encounter (principal); X58.XXXA Exposure to other specified factors, initial encounter; I10 Essential (primary) hypertension; E11.40 Type 2 diabetes mellitus with diabetic neuropathy, unspecified; Z79.4 Long term (current) use of insulin; M19.041 Primary osteoarthritis, right hand; M19.042 Primary osteoarthritis, left hand | CPT/HCPCS: 29581 ==

== ENCOUNTER → 2024-07-17 | Outpatient (CLI) | payer MEDICARE, MEDICAID, SELFPAY | END | disposition home or self-care (01) | LOC: SWHD 14:45 | PROVIDERS: PCP Family Medicine; Referring Provider Family Medicine; Visit Provider Student in an Organized Health Care Education/Training Program | DX: S81.801A Unspecified open wound, right lower leg, initial encounter (principal); X58.XXXA Exposure to other specified factors, initial encounter; I10 Essential (primary) hypertension; E11.40 Type 2 diabetes mellitus with diabetic neuropathy, unspecified; Z79.4 Long term (current) use of insulin; M19.041 Primary osteoarthritis, right hand; M19.042 Primary osteoarthritis, left hand | CPT/HCPCS: 99213; G0463 ==

== ENCOUNTER → 2024-08-07 | Outpatient (CLI) | payer MEDICARE, MEDICAID, SELFPAY | END | disposition home or self-care (01) | LOC: SWHD 13:44 | PROVIDERS: PCP Family Medicine; Referring Provider Family Medicine; Visit Provider Student in an Organized Health Care Education/Training Program | DX: S81.801A Unspecified open wound, right lower leg, initial encounter (principal); X58.XXXA Exposure to other specified factors, initial encounter; I10 Essential (primary) hypertension; E11.40 Type 2 diabetes mellitus with diabetic neuropathy, unspecified; Z79.4 Long term (current) use of insulin; M19.041 Primary osteoarthritis, right hand; M19.042 Primary osteoarthritis, left hand; R60.0 Localized edema | CPT/HCPCS: 99212; A9270; G0463 ==

== ENCOUNTER → 2024-08-26 | Outpatient (CLI) | payer MEDICARE, MEDICAID, SELFPAY ==
[2024-08-26 11:56] LABS: Glucose Estimated Average 171 mg/dL (80-131); Hemoglobin A1C 7.6 % Hgb (4.8-6.0)
[2024-08-26 11:59] LABS: Creatinine MALB Rnd Ur 109 mg/dL (30-125)
[2024-08-26 12:10] LABS: Alanine Aminotransferase 11 U/L (10-49); Albumin, Serum 4.4 gm/dL (3.4-4.8); Albumin/Globulin Ratio 1.8 (1.2-2.2); Alkaline Phosphatase 38 U/L (46-116); Anion Gap 5 (7-16); Aspartate Amino Transferase 14 U/L (0-34); BUN/Creatinine Ratio 15 Ratio (12-20); Bilirubin,Total 0.5 mg/dL (0.3-1.2); Blood Urea Nitrogen 29 mg/dL (9-23); Calcium 9.6 mg/dL (8.3-10.6); Calcium (Corrected) 9.6 mg/dL (8.5-10.1); Carbon Dioxide 27.8 mMol/L (20.0-31.0); Cardiac Risk Estimate 3.4 RATIO (4.0-6.7); Chloride 105 mMol/L (98-107); Cholesterol 121 mg/dL (132-200); Creatinine (Component) 1.9 mg/dL (0.6-1.3); Globulin 2.5 gm/dL (2.3-3.5); Glucose 152 mg/dL (74-106); HDL Cholesterol 36 mg/dL (40-60); LDL Cholesterol,Calculated 60 mg/dL (0-130); Osmolality,Calculated 284 (275-295); Potassium 4.5 mMol/L (3.4-5.1); Sodium 138 mMol/L (136-145); Total Protein 6.9 gm/dL (5.7-8.2); Triglycerides 124 mg/dL (30-150); eGFR 36 See Note
[2024-08-26 12:11] LABS: Microalbumin Creat Ratio 888 mg/gCrea (<30); Microalbumin, Random Urine 968 mg/L (0-300)
[2024-08-26 12:17] LABS: Sed Rate (ESR) 13 mm/hr (0-20)
== END | disposition home or self-care (01) ==
PROVIDERS: PCP Family Medicine; Referring Provider Family Medicine; Visit Provider Family Medicine
DX: Z00.00 Encounter for general adult medical examination without abnormal findings (principal); E11.22 Type 2 diabetes mellitus with diabetic chronic kidney disease; N18.9 Chronic kidney disease, unspecified; L03.115 Cellulitis of right lower limb
CPT/HCPCS: 36415; 80053; 80061; 82043; 82570; 83036; 85652

== ENCOUNTER 2024-10-23 10:10 | Day surgery (SDC) | payer MEDICARE, MEDICAID, SELFPAY ==
[2024-10-18 15:22] VITALS: BMI 32.3
--- NOTE | 2024-10-22 07:00 | EKG_ITS ---
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
[2024-10-22 09:44] LABS: Basophils # (Auto) 0.1 Thou/mm3 (0.0-0.2); Basophils % (Auto) 1 % (0-2.5); Eosinophils # (Auto) 0.7 Thou/mm3 (0.0-0.5); Eosinophils % (Auto) 11 % (0-10); Hematocrit 43.8 % (41.0-53.0); Hemoglobin 14.8 g/dL (13.5-16.0); Immature Granulocytes % (Auto) 1 % (0-0); Immature Granulocytes Auto 0.07 Thou/mm3 (0.00-0.00); Lymphocytes # (Auto) 2.5 Thou/mm3 (1.0-4.8); Lymphocytes % (Auto) 38 % (10-50); Mean Corpuscular HGB Conc 33.8 g/dl (31.0-37.0); Mean Corpuscular Hemoglobin 28.6 pg (25.0-35.0); Mean Corpuscular Volume 85 fL (80-100); Monocytes # (Auto) 0.4 Thou/mm3 (0.0-0.8); Monocytes % (Auto) 6 % (0-12); Neutrophils # (Auto) 2.9 Thou/mm3 (1.8-7.7); Neutrophils % (Auto) 43 % (37-80); Nucleated Red Blood Cell % 0 /100 WBC (0); Platelet Count 184 Thou/mm3 (140-440); RDW Standard Deviation 42.1 fL (35.1-43.9); Red Blood Count 5.17 Miln/mm3 (4.50-5.90); White Blood Count 6.7 Thou/mm3 (3.8-10.6)
[2024-10-22 10:06] LABS: INR 1.2 (0.9-1.3); Partial Thromboplastin Time 29.5 Seconds (22.0-36.0); Prothrombin Time 13.2 Seconds (9.0-12.2)
[2024-10-22 10:15] LABS: Anion Gap 10 (7-16); BUN/Creatinine Ratio 18 Ratio (12-20); Blood Urea Nitrogen 32 mg/dL (9-23); Calcium 8.8 mg/dL (8.3-10.6); Carbon Dioxide 26.4 mMol/L (20.0-31.0); Chloride 102 mMol/L (98-107); Creatinine (Component) 1.8 mg/dL (0.6-1.3); Estimated Creatinine Clearance 36.8 mL/min (>60); Glucose 244 mg/dL (74-106); Osmolality,Calculated 290 (275-295); Potassium 4.2 mMol/L (3.4-5.1); Sodium 138 mMol/L (136-145); eGFR 39 See Note
[2024-10-23] VITALS (11 sets, daily range): BP systolic 132–171; BP diastolic 65–90; PULSE 56–68; RESP 15–20; TEMP 36.1–37; O2SAT 93–96; BMI 33.7
--- NOTE | 2024-10-23 13:21 | ESOP_ITS ---
RE: AGUSTIN SIMPSON : 1950 DATE OF OPERATION: 10/23/2024 PROCEDURE PERFORMED: 1. Diagnostic left heart cardiac catheterization, selective coronary angiogram, left ventricular angiogram, CPT 82536. 2. Conscious sedation 30 minutes duration. 3. Ultrasound guided access of right radial artery. DIAGNOSES: Angina pectoris and abnormal stress test. HISTORY AND INDICATIONS: The patient is a 74-year-old male with a history of hypertension, hypercholesterolemia, diabetes mellitus type 2, risk factors for CAD, recurrence episodes of chest pain, shortness of breath on minimal exertion and heaviness and substernal chest pain. Stress test was inconclusive, could not perform stress test well. Coronary angiogram was recommended because of the Crescendo of class IV angina pectoris. PROCEDURE IN DETAIL: The patient was brought to cardiac catheterization laboratory where he was given 2 mg of Versed and 100 mcg of fentanyl for sedation. Right radial approach was taken. Right radial artery cannulated with micropuncture technique, 6-Vietnamese Glidesheath was introduced. The patient was given conscious sedation with 2 mg Versed and 50 mcg fentanyl. Selective right and left coronary angiogram performed by a 5-Vietnamese TIG-4 diagnostic catheter. Left heart catheterization and left ventricular angiogram performed by a 5- Vietnamese TIG-4 diagnostic catheter. The patient tolerated the procedure well. No complications. Total contrast is 15 mL. TR band was applied. Hemostasis was secured. Coronary angiogram showed following findings. Right coronary artery is large and dominant, appears normal, gives off posterior descending artery, is codominant and intact, posterolateral branches from the left circumflex artery. Left coronary artery system: Left main coronary artery is normal, left anterior descending artery showed mild irregularity, no significant stenosis. Left circumflex artery codominant; gives off subtle posterolateral branches appeared normal. Left ventricular pressure is 120/16. Aortic pressure 120/80. No gradient across the aortic valve. Left ventricular angiogram showed normal left ventricular wall motion, ejection fraction 70%. SUMMARY OF FINDINGS: 1. Normal nonobstructive epicardial coronary arteries. 2. Normal left ventricular function, ejection fraction 70%. RECOMMENDATION: The patient is reassured about the absence of significant obstructive coronary artery disease. Progress is excellent in the absence of significant coronary artery disease. Recommended continued medical management. Progress is excellent. DT: 12:44:08 TT: 13:20:00 Ref: [id number] - TID: [id number]
--- NOTE | 2024-10-23 15:13 | PC.NURSE ---
1216 patient is awake, alert, breathing unlabored, s/p LHC by Dr. Estevez, TR band present to right wrist, no bleeding or hematoma noted. Report received from Jamaal ANGULO, patient to recover for 3 hours and stop Aspirin home medication. 1315 1ml air removed from TR band since hemostasis time 1214 1400 TR band removed, no bleeding or hematoma noted 1506 patient is awake, alert, breathing unlabored, dressing to right wrist dry with no bleeding or hematoma, patient able to ambulate to bathroom and void, patient able to tolerate food tray with no nausea or vomiting, meets discharge criteria, discharge instructions given to patient and family, patient discharged home in wheelchair with all belongings.
== END 2024-10-23 15:06 | disposition home or self-care (01) ==
PROVIDERS: PCP Family Medicine; Referring Provider Internal Medicine Cardiovascular Disease; Visit Provider Internal Medicine Cardiovascular Disease
PROC: (CPT 93458; principal; 2024-10-23 11:30)
DX: I25.119 Atherosclerotic heart disease of native coronary artery with unspecified angina pectoris (principal); E11.9 Type 2 diabetes mellitus without complications; E78.00 Pure hypercholesterolemia, unspecified; I10 Essential (primary) hypertension; Z01.810 Encounter for preprocedural cardiovascular examination
CPT/HCPCS: 93458; 36415; 80048; 85025; 85610; 85730; 93005; 99152; A4649; C1887; C1894; J0171; J0461; J1643; J2250; J2310; J2371; J3010; J3490; Q9967; J2305

== ENCOUNTER → 2024-10-31 | Outpatient (CLI) | payer MEDICARE, MEDICAID, SELFPAY ==
[2024-10-31 09:24] LABS: Glucose Estimated Average 174 mg/dL (80-131); Hemoglobin A1C 7.7 % Hgb (4.8-6.0)
[2024-10-31 09:46] LABS: Alanine Aminotransferase 14 U/L (10-49); Albumin, Serum 4.5 gm/dL (3.4-4.8); Alkaline Phosphatase 37 U/L (46-116); Anion Gap 11 (7-16); Aspartate Amino Transferase 18 U/L (0-34); BUN/Creatinine Ratio 15 Ratio (12-20); Bilirubin,Total 0.5 mg/dL (0.3-1.2); Blood Urea Nitrogen 28 mg/dL (9-23); Carbon Dioxide 27.2 mMol/L (20.0-31.0); Cardiac Risk Estimate 3.2 RATIO (4.0-6.7); Chloride 104 mMol/L (98-107); Cholesterol 109 mg/dL (132-200); Creatinine (Component) 1.9 mg/dL (0.6-1.3); Globulin 2.3 gm/dL (2.3-3.5); Glucose 108 mg/dL (74-106); HDL Cholesterol 34 mg/dL (40-60); LDL Cholesterol,Calculated 50 mg/dL (0-130); Osmolality,Calculated 289 (275-295); Potassium 4.8 mMol/L (3.4-5.1); Sodium 142 mMol/L (136-145); Total Protein 6.8 gm/dL (5.7-8.2); Triglycerides 126 mg/dL (30-150); eGFR 36 See Note
== END | disposition home or self-care (01) ==
LOC: COPL 08:26
PROVIDERS: PCP Family Medicine; Referring Provider Family Medicine; Visit Provider Family Medicine
DX: E11.22 Type 2 diabetes mellitus with diabetic chronic kidney disease (principal); I12.9 Hypertensive chronic kidney disease with stage 1 through stage 4 chronic kidney disease, or unspecified chronic kidney disease; N18.32 Chronic kidney disease, stage 3b; E11.65 Type 2 diabetes mellitus with hyperglycemia; E78.2 Mixed hyperlipidemia
CPT/HCPCS: 36415; 80053; 80061; 83036

== ENCOUNTER 2024-12-11 19:59 | Inpatient (IN) | payer MEDICARE, MEDICAID, SELFPAY ==
[2024-12-11 20:55] VITALS: BP 183/77; BP 202/85; PULSE 66; RESP 20; TEMP 36.8; O2SAT 95
--- NOTE | 2024-12-11 20:59 | PD.EDNV ---
Nausea/Vomit./Diarrhea-RME/HPI General Chief complaint: Nausea/Vomiting/Diarrhea Stated complaint: DIARRHEA X 5DAYS, BLOATED Time Seen by Provider: 12/11/24 20:59 Arrival date/time: 12/11/24 19:59 RME / HPI RME / HPI Narrative: This section includes all my notes and documentations, including HPI, PE, and ED course. Jeremy Dailey MD HPI: 74yo male here with nausea, vomiting, abdominal pain, and diarrhea for the last 5 days. No bloody or black stools. No hematemesis or coffee-ground emesis. No obvious fever. No other complaints. ROS: All negative except as documented in HPI. Physical Exam: General: Alert and oriented. Appearance of malaise noted. High BP noted. Eyes: Conjunctivae and lids clear. ENT: No nasal congestion. Neck: Supple. Heart: RRR. Lungs: No respiratory distress. Good air movement. No rhonchi, wheezing, rales. Abdomen: Soft with epigastric tenderness. Normal bowel sounds. No distension. No rebound or guarding. Back: No CVA tenderness. Skin: Warm and dry. Neuro: Alert and oriented X 3. I reviewed all diagnostic test results. My interpretation of the chest x-ray is NAD. My review of the gallbladder US report is NAD. My review of the CT chest abdomen pelvis report is NAD. Blood and urine test unremarkable. UA remarkable for 3+ glucose and 2+ protein. COVID/influenza negative. At this point, diagnoses include diarrhea, vomiting, abdominal pain, and hypertensive urgency. Treatment here included Morphine, Zofran, and NS. Some improvement noted. I discussed the case with our hospitalist. About the presentation and exam and diagnostics and treatments here. And need of further care in the hospital. Will accept the patient. Jeremy Dailey MD Related Data Home Medications ?Medication ?Instructions ?Recorded ?Confirmed linagliptin 5 mg tablet (Tradjenta) 5 mg PO QDAY 07/13/17 12/12/24 dapagliflozin propanediol 5 mg 5 mg PO DAILY 03/16/22 12/12/24 tablet (Farxiga) doxazosin 2 mg tablet 2 mg PO HS 03/16/22 12/12/24 amlodipine 5 mg tablet 2.5 mg PO DAILY 10/23/24 12/12/24 insulin glargine U-300 conc 300 34 unit subcut QDAY 10/23/24 12/12/24 unit/mL (3 mL) subcutaneous pen (Toujeo Max U-300 SoloStar) rosuvastatin 20 mg tablet 20 mg PO .night 10/23/24 12/12/24 aspirin 81 mg tablet,delayed 81 mg PO Q4H PRN pain 12/12/24 12/12/24 release (Adult Low Dose Aspirin) losartan 50 mg tablet 50 mg PO DAILY 12/12/24 12/12/24 semaglutide 0.25 mg or 0.5 mg (2 0.25 mg subcut QWEEK 12/12/24 12/12/24 mg/3 mL) subcutaneous pen injector (Ozempic) Allergies Allergy/AdvReac Type Severity Reaction Status Date / Time No Known Allergies Allergy Verified 12/11/24 20:08 Review of Systems Review of Systems Systems Reviewed: All systems reviewed, normal except as documented Past Medical History Past Medical History NEUROLOGIC: Positive Peripheral Neuropathy; Negative Neurological Disorders, Cerebrovascular Accident, Transient Ischemic Attacks (TIA), Dementia, Alzheimer's Disease, Parkinson's Disease, Brain Tumor, Meningitis, Seizures, Epilepsy, Multiple Sclerosis, Cerebral Palsy, Amyotrophic Lateral Sclerosis (ALS/[place] Gehrig's), Guillain-[place] Syndrome, Spina Bifida, Paralysis, Lee's Palsy, Subdural Hematoma, Migraine, Head Trauma, Spinal Cord Injury or Traumatic Brain Injury CARDIAC: Positive Cardiac Disorders, Hypercholesterolemia and Hypertension; Negative Myocardial Infarction, Cardiac Arrhythmia, Atrial Fibrillation, Angina, Heart Murmur, Coronary Artery Disease, Atherosclerotic Heart Disease, Peripheral Vascular Disease, Aneurysm, Congestive Heart Failure, Congenital Heart Disease, Valvular Heart Disease, Rheumatic Fever, Cardiomyopathy, Edema, Pericarditis, Cellulitis, Deep Vein Thrombosis, Hypotension or Varicose Veins RESPIRATORY: Negative Chronic Obstructive Pulmonary Disease (COPD) or Asthma GASTROINTESTINAL: Positive Gastrointestinal Disorders and Obesity; Negative Hepatitis, Cirrhosis, Pancreatitis, Celiac Disease, Gall Bladder Disease, Gastrointestinal Bleed, Esophageal Varices, [place]una's Esophagus, Colitis, Ulcerative Colitis, Diverticulitis, Diverticulosis, Ulcer, Colorectal Cancer, Irritable Bowel, Crohn's Disease, Obstructive Bowel, Hiatal Hernia, Hemorrhoids or Gastroesophageal Reflux Disease GENITOURINARY: Positive Genitourinary Disorders, Renal Disease and Inguinal Hernia; Negative Kidney Stones, Polycystic Kidney Disease, Neurogenic Bladder, Dialysis, Prostate Cancer or Benign Prostatic Hyperplasia REPRODUCTIVE: Negative Breast Cancer or Testicular Cancer MUSCULOSKELETAL: Positive Musculoskeletal Disorders, Arthritis and Degenerative Disk Disease; Negative Muscular Dystrophy, Myasthenia Gravis, Marfan's Syndrome, Bone Cancer, Rheumatoid Arthritis, Osteoporosis, Gout, Scoliosis, Carpal Tunnel Syndrome, Fibromyalgia, Fractures, Degenerative Joint Disease, Osteomyelitis or Poliovirus ENT: Negative Cataracts, Glaucoma, Blind, Retinal Detachment, Macular Degeneration, Ear Infection, Deafness, Head Trauma or Eye Prosthesis ENDOCRINE: Positive Endocrine Disorders and Diabetes Mellitus Type 2; Negative Diabetes Mellitus Type 1, Hypoglycemia, Jacquelin's Syndrome, [place]'s Disease, Hyperthyroidism, Hypothyroidism, Parathyroid Disease, Pituitary Disease, Systemic Lupus Erythematosus, Syndrome of Inappropriate Antidiuretic Hormone (SIADH), Adrenal Disease or Graves' Disease HEMATOLOGIC: Negative Blood Disorders, Anemia, Leukemia, Hemophilia, Thalassemia, Sickle Cell Disease or Clotting Problems PSYCHO/SOCIAL: Negative Psychiatric Problems, Schizophrenia, Recreational Drug Use, Bipolar Disorder, Depression, Anxiety, Behavior Problems, Self-Mutilation, Attention Deficit Disorder, Attention Deficit Hyperactivity Disorder, Depression, Post Traumatic Stress Disorder or Eating Disorder OTHER HISTORY: Negative Hospitalization, Autoimmune Disease, Down Syndrome, Autism, Developmental Delay, Shingles, Falls, Blood Transfusions, Blood Transfusion Reaction, Anesthesia Reactions, Organ Transplant, Chemotherapy, Radiation Therapy, Hyperbaric Therapy, MRSA, VRSA, Vancomycin-Resistant Enterococci, Human Immunodeficiency Virus (HIV), Chicken Pox, Measles, Mumps, Rubella ([place]ian Measles), Pertussis, Clostridium Difficile, Cancer, Breast Cancer, Colorectal Cancer, Lung Cancer, Ovarian Cancer, Prostate Cancer or Testicular Cancer Family History FAMILY HISTORY: Negative Family Psychiatric Problems, Family Respiratory Disorders, Family Cardiac Disorders, Family Gastrointestinal Problems, Family Cancer, Family Surgery or Family Anesthesia Reaction Surgical History SURGICAL: Positive Abdominal Surgery; Negative Cardiac Surgery, Open Heart Surgery, Coronary Artery Bypass Graft, Valve Replacement, Vascular Surgery, Coronary Stent, Cardiac Catheterization, Pacemaker, Angiogram, Auto Implanted Cardiovert Defib, Carotid Endarterectomy, Endocrine Surgery, Thyroidectomy, Ear Surgery, Tympanostomy Tube, Eye Surgery, Nose Surgery, Oral Surgery, Tonsillectomy, Adenoidectomy, Cochlear Implant, Corneal Transplant, Throat Surgery, Tracheostomy, Gastric Bypass Surgery, Gastrostomy, Bowel Surgery, Nephrectomy, Transurethral Resection, Joint Replacement, Amputation, Open Reduction Internal Fixation, Arthroscopy, Vasectomy or Organ Transplant Social History SMOKING STATUS: Never smoker SECOND HAND EXPOSURE: No SUBSTANCE USE: does not use ED Exam Narrative Physical exam: As noted in HPI. Course Quality Measures none Orders Category Date Time Status Admit to Inpatient Status Routine Admission 12/11/24 23:31 Active Patient Condition Routine Admission 12/11/24 23:31 Ordered Activity as Tolerated Routine Care 12/11/24 23:32 Ordered Bedside Blood Glucose ACHS Care 12/11/24 23:31 Active Bedside COVID-19 Antigen Test NOW Care 12/11/24 21:00 Active Bedside Influenza A&B Antigen Test NOW Care 12/11/24 21:00 Completed Continuous Pulse Oximetry NOW Care 12/11/24 23:31 Completed Flu & Pneumonia Vaccine Screen ONCE Care 12/11/24 23:31 Active Miscellaneous Nursing Order NOW Care 12/11/24 23:38 Active Notify provider NEEDED Care 12/11/24 23:31 Active Obtain weight daily Care 12/11/24 23:32 Active Saline [Insert IV] NOW Care 12/11/24 21:00 Active Straight [In and Out Catheter] X1 Care 12/11/24 21:[address] chest abdomen pelvis wo Stat Exams 12/11/24 21:06 Completed US gall bladder Stat Exams 12/11/24 21:07 Completed XR chest 1V portable Stat Exams 12/11/24 21:07 Completed Amylase Stat Lab 12/11/24 21:38 Completed Bilirubin,Direct Stat Lab 12/11/24 21:38 Completed Blood Culture (Lab) Stat Lab 12/11/24 21:43 Received CBC AM DRAW Lab 12/12/24 05:00 Ordered CBC AM DRAW Lab 12/13/24 05:00 Ordered CBC AM DRAW Lab 12/14/24 05:00 Ordered CBC Stat Lab 12/11/24 21:38 Completed CMP [Comprehensive Metabolic Panel] Stat Lab 12/11/24 21:38 Completed CRP [C-Reactive Protein] Stat Lab 12/11/24 21:38 Completed Calprotectin, Stool* Stat Lab 12/11/24 Received Comprehensive Metabolic Panel AM DRAW Lab 12/12/24 05:00 Ordered Comprehensive Metabolic Panel AM DRAW Lab 12/13/24 05:00 Ordered Comprehensive Metabolic Panel AM DRAW Lab 12/14/24 05:00 Ordered ESR [Sed Rate (ESR)] Stat Lab 12/11/24 21:38 Completed Giardia Antigen, EIA, Stool* Stat Lab 12/12/24 02:48 Received Helicobacter pylori Ag, Stool* Stat Lab 12/12/24 02:48 Received Lactate (Lactic Acid) Stat Lab 12/11/24 21:38 Completed Lipase Stat Lab 12/11/24 21:38 Completed Magnesium Stat Lab 12/11/24 21:38 Completed Norovirus, EIA (Stool)* Stat Lab 12/12/24 02:48 Received Procalcitonin Stat Lab 12/11/24 21:38 Completed Stool Culture Stat Lab 12/12/24 02:48 Received Stool for WBCs Stat Lab 12/12/24 02:48 Received UA, C/S IF [Urinalysis, C/S if Indicated] Stat Lab 12/11/24 21:57 Completed Urinalysis, C/S if Indicated Stat Lab 12/11/24 23:30 Ordered Acetaminophen Tab [Tylenol Tab] Med 12/11/24 23:31 Active 650 mg PO Q6H PRN Dextrose 50% Syr [D50w Syringe Abboject] Med 12/11/24 23:31 Active 25 ml IV Q15MIN PRN Dextrose 50% Syr [D50w Syringe Abboject] Med 12/11/24 23:31 Active 50 ml IV Q15MIN PRN Glucagon Inj Med 12/11/24 23:31 Active 1 mg IM Q15MIN PRN Heparin Inj Med 12/12/24 09:00 Active 5,000 unit SC Q12HR INSULIN LISPRO (AdmeLOG) [HumaLOG] Med 12/12/24 07:30 Active 5 unit SC AC INSULIN LISPRO (AdmeLOG) [HumaLOG] Med 12/12/24 07:30 Active See Protocol SC ACHS Insulin Glargine Inj [Lantus Inj] Med 12/12/24 21:00 Active 15 unit SC HS Magnesium Sulfate 4 GM Ivpb [Magnesium Sulfate Ivpb] Med 12/11/24 23:35 Discontinued 4 gm in 50 ml IV X1 Morphine Inj Med 12/11/24 21:05 Discontinued 4 mg IVP X1 ONE Ondansetron Inj [Zofran Inj] Med 12/11/24 23:31 Active 4 mg IVP Q6H PRN Ondansetron Inj [Zofran Inj] Med 12/11/24 21:05 Discontinued 4 mg IVP X1 ONE Ringers Lactated 1000 ml [Lactated Ringers] 1,000 ml Med 12/11/24 23:45 Active IV 75 mls/hr Senna [Senokot] Med 12/11/24 23:31 Active 1 tab PO QDAY PRN Sodium Chloride 0.9% 1000 ml [Ns] 1,000 ml Med 12/11/24 21:05 Discontinued IV 999 mls/hr Sodium Chloride 0.9% 1000 ml [Ns] 1,000 ml Med 12/11/24 21:06 Discontinued IV 999 mls/hr hydrALAZINE INJ [Apresoline Inj] Med 12/11/24 23:38 Discontinued 10 mg IVP X1 ONE Code Status Routine Oth 12/11/24 23:31 Ordered Vital Signs Vital signs: Vital Signs Temperature 98.3 F 12/11/24 20:55 Pulse Rate 66 12/11/24 20:55 Respiratory Rate 20 12/11/24 20:55 Blood Pressure 183/77 H 12/11/24 20:55 Pulse Oximetry (%) 95 12/11/24 20:55 Oxygen Delivery Method Room Air 12/11/24 20:55 Nausea/Vomiting/Diarrhea MDM Narrative MDM Narrative:: 74yo male here with complaints of nausea, vomiting, and diarrhea for the last 5 days. No bloody or black stools. Patient has a dry cough, chills, abdominal bloating, and diffuse abdominal pain. PSH includes hernia repair. He has not been on antibiotics recently. No other complaints reported. Patient data External records reviewed:: [facility] previous records (Per chart review, patient was seen here on 10/08/20 for mild dehydration.) Clinical information provided by:: patient Social determinants that could affect healthcare access:: none Patient has the following chronic illnesses:: DM, HTN, HLD How is presenting disease/condition affected by chronic disease/condition?: uneffected by Evaluation data The following diagnostics were reviewed and interpreted by me:: lab results and radiology exam(s) Lab and/or radiology exams considered but not ordered:: none Interpretation Summary: I reviewed all diagnostic test results. My interpretation of the chest x-ray is NAD. My review of the gallbladder US report is NAD. My review of the CT chest abdomen pelvis report is NAD. Blood and urine test unremarkable. UA remarkable for 3+ glucose and 2+ protein. COVID/influenza negative. Medications / Prescriptions Medications / Prescriptions considered but not ordered:: none Medication administrations:: Medication Administration History Acetaminophen (Acetaminophen 325 Mg Tablet) 650 mg PO Q6H PRN PRN Reason: PAIN SCALE 1-3 (mild Stop: 01/10/25 23:30 Albuterol (Albuterol Inh 8 Gm) 2 puff INH Q4H PRN PRN Reason: SHORTNESS OF BREATH OR WHEEZE Stop: 01/11/25 00:01 Dextrose (Dextrose 50%-Water Inj 50 Ml Syringe) 25 ml IV Q15MIN PRN PRN Reason: BG 50-70 responsive npo pt Stop: 01/10/25 23:30 Dextrose (Dextrose 50%-Water Inj 50 Ml Syringe) 50 ml IV Q15MIN PRN PRN Reason: BG <50 OR BG <70 & pt unresponsive Stop: 01/10/25 23:30 Glucagon (Glucagon Inj 1 Mg Vial) 1 mg IM Q15MIN PRN PRN Reason: BG <70, and no IV access Heparin Sodium (Porcine) (Heparin Sod Inj 5000 Unit/Ml Vial) 5,000 unit SC Q12HR SHARI Stop: 12/26/24 08:59 Hydralazine HCl (Hydralazine Inj 20 Mg/Ml Vial) 10 mg IVP Q6H PRN PRN Reason: Systolic >180 and if HR <75 Stop: 01/11/25 00:01 Lactated Ringer's (Lactated Ringers) 1,000 mls @ 75 mls/hr IV .[id number] SHARI Stop: 12/12/24 13:04 Last Admin: 12/12/24 00:20 Dose: 75 mls/hr Documented By: COLLEEN Insulin Glargine (Insulin Glargine (Lantus) 5 Unit/0.05 Ml (Per 5 Units)) 15 unit SC HS [facility] Stop: 01/11/25 20:59 Insulin Human Lispro (Insulin Lispro (Admelog) 1 Unit/0.01 Ml Unit) 0 unit SC ACHS [facility]; Protocol Stop: 01/11/25 07:29 Insulin Human Lispro (Insulin Lispro (Admelog) 1 Unit/0.01 Ml Unit) 5 unit SC AC [facility] Stop: 01/11/25 07:29 Loperamide HCl (Loperamide 2 Mg Capsule) 2 mg PO Q6HR PRN PRN Reason: DIARRHEA Stop: 12/19/24 02:47 Last Admin: 12/12/24 03:10 Dose: 2 mg Documented By: JARVIS Ondansetron HCl (Ondansetron Inj 2 Mg/Ml Inj 2 Ml) 4 mg IVP Q6H PRN; Protocol PRN Reason: NAUSEA OR VOMITING Stop: 01/10/25 23:30 Sennosides (Senna Tablet) 1 tab PO QDAY PRN; Protocol PRN Reason: constipation Stop: 01/10/25 23:30 Discontinued Medications Albuterol (Albuterol Inh 8 Gm) 2 puff INH Q4HR PRN PRN Reason: SHORTNESS OF BREATH OR WHEEZE Stop: 01/11/25 00:01 Hydralazine HCl (Hydralazine Inj 20 Mg/Ml Vial) 10 mg IVP X1 ONE Stop: 12/11/24 23:39 Last Admin: 12/12/24 00:20 Dose: 10 mg Documented By: COLLEEN Sodium Chloride (Ns) 1,000 mls @ 999 mls/hr IV .Q1H1M ONE Stop: 12/11/24 22:05 Last Infusion: 12/11/24 22:55 Dose: Infused Documented By: Admin: 12/11/24 21:46 Dose: 999 mls/hr Documented By: COLLEEN Sodium Chloride (Ns) 1,000 mls @ 999 mls/hr IV .Q1H1M ONE Stop: 12/11/24 22:06 Last Infusion: 12/11/24 22:55 Dose: Infused Documented By: Admin: 12/11/24 21:46 Dose: 999 mls/hr Documented By: COLLEEN Magnesium Sulfate (Magnesium Sulfate Ivpb) 4 gm in 50 mls @ 12.5 mls/hr IV X1 ONE Stop: 12/12/24 03:34 Last Admin: 12/12/24 00:18 Dose: 12.5 mls/hr Documented By: COLLEEN Morphine Sulfate (Morphine Sulf Inj 10 Mg/Ml Vial) 4 mg IVP X1 ONE Stop: 12/11/24 21:06 Last Admin: 12/11/24 21:45 Dose: 4 mg Documented By: COLLEEN Ondansetron HCl (Ondansetron Inj 2 Mg/Ml Inj 2 Ml) 4 mg IVP X1 ONE; Protocol Stop: 12/11/24 21:06 Last Admin: 12/11/24 21:45 Dose: 4 mg Documented By: COLLEEN Treatment from ri included morphine, Zofran, NS. Consultations Consultation(s) initiated? (list below): Yes Consultation #1 (Physician, Specialty, Details): I discussed the case with our hospitalist. About the presentation and exam and diagnostics and treatments here. And need of further care in the hospital. Will accept the patient. Diagnosis Nausea Differential Diagnosis: traveler's diarrhea, food poisoning, gastroenteritis, clostridium difficile infection, drug-induced nausea and vomiting and dehydration Most likely diagnosis given after review of the tests above:: Vomiting/diarrhea/abdominal pain of unclear etiology and hypertensive urgency. Admission Indicated Admission indicated?: indicated Explain why admission is indicated or not indicated:: Vomiting/diarrhea/abdominal pain of unclear etiology and hypertensive urgency. Admission Request Was there a request for admission?: Yes Admission Attestation Admission request attestation: Discussed case with Hospitalist service regarding admission. Discussed patients ED course, exam findings, labs, and radiology results. The Hospitalist [agrees] to accept the patient for admission. Disposition Plan Disposition Plan: Admit Discharge Plan Plan Patient Disposition: Admit Acute Care w/in Hospital Problem List Clinical Impression: Diarrhea, Vomiting, Abdominal pain, Hypertensive urgency
--- NOTE | 2024-12-11 21:06 | XR_ITS ---
Examination: CT chest, without intravenous contrast. CT abdomen, without intravenous contrast. CT pelvis, without intravenous contrast. 2-D sagittal and coronal reconstructions. 3-D reconstructions. Date and time of exam:December 11, 2024 2130 hours INDICATIONS: Shortness breath abdominal pain 5 days CTDI vol (mgy) 9.81 DLP (MGycm)760 Technique: Multiple CT images, 3.0 mm slice thickness, obtained chest, abdomen, pelvis, with the high-resolution 64 slice scanner.. Sagittal and coronal 2-D reconstructions are obtained. 3-D reconstructions Low dose protocols were performed. One or more of the following dose reduction techniques were used; automated exposure control, adjustment of the mA and/or KV according to patient size, use of iterative reconstruction technique. Findings: No thoracic aortic aneurysmal dilatation Pulmonary artery segments are not enlarged No mediastinal lymphadenopathy No pneumonia or pulmonary edema or pleural disease. No focal liver or splenic lesions Contracted gallbladder No pancreatic or adrenal mass Perinephric stranding, 32 mm medial right renal cyst Abdominal aorta normal size 10 mm fat-containing umbilical hernia Normal appendix No bowel obstruction No diverticulitis Normal seminal vesicles Transverse prostate dimension 5 cm Contracted urinary bladder, bladder wall thickening mild Small fat-containing right inguinal hernia Grade 1 spondylolisthesis of L5 on S1 IMPRESSION: No acute process in the chest abdomen or pelvis
--- NOTE | 2024-12-11 21:07 | XR_ITS ---
Examination: Abdomen sonogram, Limited Date and time of exam: December 11, 2024 2158 hours INDICATIONS: Right upper abdominal pain beginning 5 days ago Technique: Real-time raygoza scale transabdominal sonographic images of the upper abdomen obtained. Findings: Negative for gallstones Gallbladder wall is 0.47 cm no edema, the gallbladder is contracted Common bile duct 0.5 cm Pancreatic head 3.3 cm Liver 15.1 cm fatty infiltration Normal hepatopedal portal venous flow Patent IVC IMPRESSION: Negative for cholelithiasis, negative for cholecystitis
--- NOTE | 2024-12-11 21:07 | XR_ITS ---
Examination: PA chest single view TECHNIQUE: Upright PA chest single view Date and time: December 11, 2024 2112 hours INDICATIONS: Nausea vomiting diarrhea beginning 5 days ago. FINDINGS: Normal heart size The lungs are clear The osseous structures are intact IMPRESSION: No active disease
[2024-12-11 21:25] VITALS: BP 187/77; PULSE 62; RESP 19; TEMP 36.7; O2SAT 95; BMI 33.3
[2024-12-11] MEDS: ONDANSETRON INJ 2 MG/ML INJ 2 ML 4 MG IVP (21:45)
[2024-12-11] MEDS: MORPHINE SULF INJ 10 MG/ML VIAL 4 MG IVP (21:45)
[2024-12-11 21:46] VITALS: BP 192/82; PULSE 65; RESP 15; TEMP 36.7; O2SAT 95
[2024-12-11] MEDS: SODIUM CHLORIDE 0.9% 1000 ML 1,000 ML 999 ML IV ×2 (21:46)
[2024-12-11 21:55] LABS: Lactate (Lactic Acid) 1.3 mMol/L (0.4-2.0)
[2024-12-11 21:59] LABS: Basophils # (Auto) 0.1 Thou/mm3 (0.0-0.2); Basophils % (Auto) 1 % (0-2.5); Eosinophils # (Auto) 0.4 Thou/mm3 (0.0-0.5); Eosinophils % (Auto) 6 % (0-10); Hematocrit 47.7 % (41.0-53.0); Hemoglobin 16.3 g/dL (13.5-16.0); Immature Granulocytes Auto 0.09 Thou/mm3 (0.00-0.00); Lymphocytes # (Auto) 2.8 Thou/mm3 (1.0-4.8); Lymphocytes % (Auto) 37 % (10-50); Mean Corpuscular HGB Conc 34.2 g/dl (31.0-37.0); Mean Corpuscular Hemoglobin 28.2 pg (25.0-35.0); Mean Corpuscular Volume 83 fL (80-100); Monocytes # (Auto) 0.7 Thou/mm3 (0.0-0.8); Monocytes % (Auto) 9 % (0-12); Neutrophils # (Auto) 3.4 Thou/mm3 (1.8-7.7); Neutrophils % (Auto) 45 % (37-80); Nucleated Red Blood Cell # 0.00 Thou/mm3 (0.00-0.00); Nucleated Red Blood Cell % 0 /100 WBC (0); Platelet Count 222 Thou/mm3 (140-440); RDW Standard Deviation 41.7 fL (35.1-43.9); Red Blood Count 5.78 Miln/mm3 (4.50-5.90); White Blood Count 7.5 Thou/mm3 (3.8-10.6)
[2024-12-11 22:20] LABS: Collection Type, Urine Clean Catch; WBC,Urine 0 /hpf (0-5)
[2024-12-11 22:28] LABS: Alanine Aminotransferase 11 U/L (10-49); Albumin, Serum 4.8 gm/dL (3.4-4.8); Albumin/Globulin Ratio 1.7 (1.2-2.2); Alkaline Phosphatase 47 U/L (46-116); Amylase 55 U/L (30-118); Anion Gap 9 (7-16); Aspartate Amino Transferase 17 U/L (0-34); BUN/Creatinine Ratio 12 Ratio (12-20); Bilirubin,Direct 0.1 mg/dL (0.0-0.3); Bilirubin,Total 0.4 mg/dL (0.3-1.2); Blood Urea Nitrogen 23 mg/dL (9-23); C-Reactive Protein < 0.5 mg/dL (0.0-0.9); Calcium 10.1 mg/dL (8.3-10.6); Calcium (Corrected) 10.1 mg/dL (8.5-10.1); Carbon Dioxide 24.4 mMol/L (20.0-31.0); Chloride 106 mMol/L (98-107); Creatinine (Component) 1.9 mg/dL (0.6-1.3); Estimated Creatinine Clearance 35.4 mL/min (>60); Globulin 2.9 gm/dL (2.3-3.5); Glucose 139 mg/dL (74-106); Lipase 36 U/L (12-53); Magnesium 1.6 mg/dL (1.6-2.6); Osmolality,Calculated 283 (275-295); Potassium 4.2 mMol/L (3.4-5.1); Procalcitonin 0.08 ng/ml (0.0-0.49); Sed Rate (ESR) 36 mm/hr (0-20); Sodium 139 mMol/L (136-145); Total Protein 7.7 gm/dL (5.7-8.2); eGFR 36 See Note
[2024-12-11 22:43] LABS: Bilirubin,Urine Negative (Negative); Blood,Urine Trace (Negative); Clarity,Urine Clear (Clear/Hazy); Color,Urine Lt-Yellow (Lt Yel-Yel); Culture Indicated,Urine Not Indicated; Glucose, Urine 3+ (Negative); Ketones,Urine Negative (Negative); Leukocyte Esterase,Urine Negative (Negative); Nitrite,Urine Negative (Negative); PH,Urine 6.0 (5.0-7.0); Protein,Urine 2+ (Neg - Trace); RBC,Urine 2 /hpf (0-3); Specific Gravity,Urine 1.024 (1.001-1.035); Squamous Epithelial Cell,Urine < 1 /hpf (0-5); Urobilinogen,Urine Negative mg/dL (0.0-1.0)
[2024-12-12] VITALS (9 sets, daily range): BP systolic 143–170; BP diastolic 67–99; PULSE 6–73; RESP 16–19; TEMP 36.1–36.6; O2SAT 93–97; BMI 30.7
--- NOTE | 2024-12-12 00:03 | PD.RESHP ---
Documentation for date of: 12/11/24 [facility] History of Present Illness History of present illness: Nicholas Damian is a 74-year-old male with a PMH of T2DM, hypertension, degenerative disc disease, diabetic peripheral neuropathy, and benign prostatic hyperplasia who presents today with diarrhea and abdominal pain. He states that both symptoms began 5 days ago and that he has never had a similar prior episode. He reports that he has been having 5-6 bowel movements a day that are productive of liquid, yellow stool. However, he denies any blood in the stool. The abdominal pain he is endorsing is mainly localized to the epigastric abdominal region and is characterized as constant, burning pain. He reports that the pain severity is currently an 8 out of 10. Patient also endorses associated recent symptoms of nausea and appetite loss. Of note, patient confirms that he has recently started taking Ozempic as part of his T2DM management regimen. He denies any recent travel, sick contacts or antibiotic use. In the ED, vitals showed: BP 183/77 HR 66 RR 20 Temp 98.3 SpO2 95% on room air ED Course: CBC showed slightly high absolute # of immature granulocytes 0.09 and elevated ESR 36 (possibly indicating active inflammation) but was otherwise unremarkable. CMP showed high creatinine 1.9, low EGFR 36, and high blood glucose 139 but was otherwise unremarkable. UA showed 2+ protein and 3+ glucose. Imaging showed: CT CAP showed no acute process in the chest, abdomen, or pelvis. CXR showed no active disease. Gallbladder US was negative for cholelithiasis and cholecystitis. In the ED, patient was given IV hydralazine HCl 10 mg x1, IV morphine sulfate 4 mg x1, IV Zofran 4 mg x1, IV magnesium sulfate 4 gm x1. He was also infused with 1L NS bolus x2 and started on 1L LR maintenance fluid. Patient was admitted for the work-up and management of hypertensive urgency, diarrhea, and abdominal pain. Review of Systems Review of Systems Narrative Review of Systems: General: Denies fevers or chills HEENT: Endorses dry mouth. Denies congestion or sore throat Heart: Denies chest pain or palpitations Lungs: Denies shortness of breath or cough Abdomen: Endorses nausea. Endorses hyperdefecation and diarrhea productive of liquid, yellow stool. Endorses epigastric abdominal pain. Denies vomiting, constipation, or blood in stool Genitourinary: Denies frequency, urgency, dysuria, or hematuria Neurology: Denies any changes in vision, weakness or difficulty speaking Review of systems otherwise negative except what is mentioned above. Past Medical History Past Medical History NEUROLOGIC: Positive Peripheral Neuropathy; Negative Neurological Disorders, Cerebrovascular Accident, Transient Ischemic Attacks (TIA), Dementia, Alzheimer's Disease, Parkinson's Disease, Brain Tumor, Meningitis, Seizures, Epilepsy, Multiple Sclerosis, Cerebral Palsy, Amyotrophic Lateral Sclerosis (ALS/Suki Gehrig's), Guillain-Aurora Syndrome, Spina Bifida, Paralysis, Lee's Palsy, Subdural Hematoma, Migraine, Head Trauma, Spinal Cord Injury or Traumatic Brain Injury CARDIAC: Positive Cardiac Disorders, Hypercholesterolemia and Hypertension; Negative Myocardial Infarction, Cardiac Arrhythmia, Atrial Fibrillation, Angina, Heart Murmur, Coronary Artery Disease, Atherosclerotic Heart Disease, Peripheral Vascular Disease, Aneurysm, Congestive Heart Failure, Congenital Heart Disease, Valvular Heart Disease, Rheumatic Fever, Cardiomyopathy, Edema, Pericarditis, Cellulitis, Deep Vein Thrombosis, Hypotension or Varicose Veins RESPIRATORY: Negative Chronic Obstructive Pulmonary Disease (COPD) or Asthma GASTROINTESTINAL: Positive Gastrointestinal Disorders and Obesity; Negative Hepatitis, Cirrhosis, Pancreatitis, Celiac Disease, Gall Bladder Disease, Gastrointestinal Bleed, Esophageal Varices, Osuna's Esophagus, Colitis, Ulcerative Colitis, Diverticulitis, Diverticulosis, Ulcer, Colorectal Cancer, Irritable Bowel, Crohn's Disease, Obstructive Bowel, Hiatal Hernia, Hemorrhoids or Gastroesophageal Reflux Disease GENITOURINARY: Positive Genitourinary Disorders, Renal Disease and Inguinal Hernia; Negative Kidney Stones, Polycystic Kidney Disease, Neurogenic Bladder, Dialysis, Prostate Cancer or Benign Prostatic Hyperplasia REPRODUCTIVE: Negative Breast Cancer or Testicular Cancer MUSCULOSKELETAL: Positive Musculoskeletal Disorders, Arthritis and Degenerative Disk Disease; Negative Muscular Dystrophy, Myasthenia Gravis, Marfan's Syndrome, Bone Cancer, Rheumatoid Arthritis, Osteoporosis, Gout, Scoliosis, Carpal Tunnel Syndrome, Fibromyalgia, Fractures, Degenerative Joint Disease, Osteomyelitis or Poliovirus ENT: Negative Cataracts, Glaucoma, Blind, Retinal Detachment, Macular Degeneration, Ear Infection, Deafness, Head Trauma or Eye Prosthesis ENDOCRINE: Positive Endocrine Disorders and Diabetes Mellitus Type 2; Negative Diabetes Mellitus Type 1, Hypoglycemia, Orange's Syndrome, Naresh's Disease, Hyperthyroidism, Hypothyroidism, Parathyroid Disease, Pituitary Disease, Systemic Lupus Erythematosus, Syndrome of Inappropriate Antidiuretic Hormone (SIADH), Adrenal Disease or Graves' Disease HEMATOLOGIC: Negative Blood Disorders, Anemia, Leukemia, Hemophilia, Thalassemia, Sickle Cell Disease or Clotting Problems PSYCHO/SOCIAL: Negative Psychiatric Problems, Schizophrenia, Recreational Drug Use, Bipolar Disorder, Depression, Anxiety, Behavior Problems, Self-Mutilation, Attention Deficit Disorder, Attention Deficit Hyperactivity Disorder, Depression, Post Traumatic Stress Disorder or Eating Disorder OTHER HISTORY: Negative Hospitalization, Autoimmune Disease, Down Syndrome, Autism, Developmental Delay, Shingles, Falls, Blood Transfusions, Blood Transfusion Reaction, Anesthesia Reactions, Organ Transplant, Chemotherapy, Radiation Therapy, Hyperbaric Therapy, MRSA, VRSA, Vancomycin-Resistant Enterococci, Human Immunodeficiency Virus (HIV), Chicken Pox, Measles, Mumps, Rubella (Latvian Measles), Pertussis, Clostridium Difficile, Cancer, Breast Cancer, Colorectal Cancer, Lung Cancer, Ovarian Cancer, Prostate Cancer or Testicular Cancer Family History FAMILY HISTORY: Negative Family Psychiatric Problems, Family Respiratory Disorders, Family Cardiac Disorders, Family Gastrointestinal Problems, Family Cancer, Family Surgery or Family Anesthesia Reaction Surgical History SURGICAL: Positive Abdominal Surgery; Negative Cardiac Surgery, Open Heart Surgery, Coronary Artery Bypass Graft, Valve Replacement, Vascular Surgery, Coronary Stent, Cardiac Catheterization, Pacemaker, Angiogram, Auto Implanted Cardiovert Defib, Carotid Endarterectomy, Endocrine Surgery, Thyroidectomy, Ear Surgery, Tympanostomy Tube, Eye Surgery, Nose Surgery, Oral Surgery, Tonsillectomy, Adenoidectomy, Cochlear Implant, Corneal Transplant, Throat Surgery, Tracheostomy, Gastric Bypass Surgery, Gastrostomy, Bowel Surgery, Nephrectomy, Transurethral Resection, Joint Replacement, Amputation, Open Reduction Internal Fixation, Arthroscopy, Vasectomy or Organ Transplant Social History SMOKING STATUS: Never smoker SECOND HAND EXPOSURE: No SUBSTANCE USE: does not use Past Medical History Comments PMH COMMENT: PMH: T2DM, HTN, degenerative disc disease, diabetic peripheral neuropathy, benign prostatic hyperplasia PSH: hernia repair 30 years ago Medications: subQ Ozempic 0.25 mg qWK, subQ Toujeo Max Solostar Pen 300 units/mL (34 doses qAM, 26 doses qHS), PO aspirin 81 mg qAM, PO doxazosin mesylate 2 mg qHS, PO rosuvastatin calcium 20 mg qHS, PO Farxiga (dapagliflozin) 5 mg qAM, PO losartan potassium 50 mg qD Allergies: none FH: unknown SH: lives in a house in [place] with and 3rd eldest son, no pets, currently retired, employment history includes working for a [employer] company and [employer], last smoked when he was 44 (30 years ago) but does not know when he started, smoked a pack a day at the time, denies history of alcohol use or recreational drug use Exam Vital Signs Temp Pulse Resp BP Pulse Ox O2 Del Method 98.0 F 65 15 192/82 H 95 Room Air 12/11/24 21:46 12/11/24 21:46 12/11/24 21:46 12/11/24 21:46 12/11/24 21:46 12/11/24 21:46 Narrative Exam Physical Exam: General: Alert, no acute distress. Skin: Warm, dry, intact, no obvious rash. Head: Normocephalic, atraumatic. Eye: Normal conjunctiva, PERRL. Throat: Oral mucosa moist. No obvious lesions in oropharynx. Cardiovascular: Regular rate and rhythm, no murmur, +S1/S2. Respiratory: Lungs are clear to auscultation, respirations unlabored, no crackles, no wheezing. Gastrointestinal: Hyperactive bowel sounds. Tenderness to palpation of abdomen, particularly in the epigastric region. Soft, non-distended. No guarding or rebound tenderness. Extremities: No edema, no cyanosis, no clubbing. 2+ radial pulse bilaterally, 2+ posterior tibial pulse bilaterally. Neuro: No focal deficits observed. Conversant, moving all extremities. No overt cerebellar signs/incoordination. Psychiatric: Cooperative, appropriate affect. Results: Labs 12/11/24 21:38 12/11/24 21:38 Labs: Short CBC 12/11/24 Range/Units 21:38 WBC 7.5 (3.8-10.6) Thou/mm3 Hgb 16.3 H (13.5-16.0) g/dL Hct 47.7 (41.0-53.0) % Plt Count 222 (140-440) Thou/mm3 BMP 12/11/24 21:38 Sodium 139 Potassium 4.2 Chloride 106 Carbon Dioxide 24.4 BUN 23 Creatinine 1.9 H Glucose 139 H Calcium 10.1 Liver Function 12/11/24 Range/Units 21:38 Total Bilirubin 0.4 (0.3-1.2) mg/dL Direct Bilirubin 0.1 (0.0-0.3) mg/dL AST 17 (0-34) U/L ALT 11 (10-49) U/L Alkaline Phosphatase 47 (46-116) U/L Albumin 4.8 (3.4-4.8) gm/dL Urine 12/11/24 Range/Units 21:57 Urine Color Lt-Yellow (Lt Yel-Yel) Urine Clarity Clear (Clear/Hazy) Urine pH 6.0 (5.0-7.0) Ur Specific [place] 1.024 (1.001-1.035) Urine Protein 2+ A (Neg - Trace) Urine Glucose (UA) 3+ A (Negative) Quality Measures Quality Measures none Advance care planning discussed with:: patient Medications Home Medications and Allergies Home Medications ?Medication ?Instructions ?Recorded ?Confirmed ?Type linagliptin 5 mg tablet (Tradjenta) 5 mg PO QDAY 07/13/17 12/12/24 History dapagliflozin propanediol 5 mg 5 mg PO DAILY 03/16/22 12/12/24 History tablet (Farxiga) doxazosin 2 mg tablet 2 mg PO HS 03/16/22 12/12/24 History amlodipine 5 mg tablet 2.5 mg PO DAILY 10/23/24 12/12/24 History insulin glargine U-300 conc 300 34 unit subcut QDAY 10/23/24 12/12/24 History unit/mL (3 mL) subcutaneous pen (Toujeo Max U-300 SoloStar) rosuvastatin 20 mg tablet 20 mg PO .night 10/23/24 12/12/24 History aspirin 81 mg tablet,delayed 81 mg PO Q4H PRN pain 12/12/24 12/12/24 History release (Adult Low Dose Aspirin) losartan 50 mg tablet 50 mg PO DAILY 12/12/24 12/12/24 History semaglutide 0.25 mg or 0.5 mg (2 0.25 mg subcut QWEEK 12/12/24 12/12/24 History mg/3 mL) subcutaneous pen injector (Ozempic) Allergies Allergy/AdvReac Type Severity Reaction Status Date / Time No Known Allergies Allergy Verified 12/11/24 20:08 Visit Medications Acetaminophen (Acetaminophen 325 Mg Tablet) 650 mg PO Q6H PRN PRN Reason: PAIN SCALE 1-3 (mild Stop: 01/10/25 23:30 Albuterol (Albuterol Inh 8 Gm) 2 puff INH Q4HR PRN PRN Reason: SHORTNESS OF BREATH OR WHEEZE Stop: 01/11/25 00:01 Dextrose (Dextrose 50%-Water Inj 50 Ml Syringe) 25 ml IV Q15MIN PRN PRN Reason: BG 50-70 responsive npo pt Stop: 01/10/25 23:30 Dextrose (Dextrose 50%-Water Inj 50 Ml Syringe) 50 ml IV Q15MIN PRN PRN Reason: BG <50 OR BG <70 & pt unresponsive Stop: 01/10/25 23:30 Glucagon (Glucagon Inj 1 Mg Vial) 1 mg IM Q15MIN PRN PRN Reason: BG <70, and no IV access Heparin Sodium (Porcine) (Heparin Sod Inj 5000 Unit/Ml Vial) 5,000 unit SC Q12HR [facility] Stop: 12/26/24 08:59 Lactated Ringer's (Lactated Ringers) 1,000 mls @ 75 mls/hr IV .[id number] [facility] Stop: 12/12/24 13:04 Magnesium Sulfate (Magnesium Sulfate Ivpb) 4 gm in 50 mls @ 12.5 mls/hr IV X1 ONE Stop: 12/12/24 03:34 Insulin Glargine (Insulin Glargine (Lantus) 5 Unit/0.05 Ml (Per 5 Units)) 15 unit SC HS [facility] Stop: 01/11/25 20:59 Insulin Human Lispro (Insulin Lispro (Admelog) 1 Unit/0.01 Ml Unit) 0 unit SC ACHS [facility]; Protocol Stop: 01/11/25 07:29 Insulin Human Lispro (Insulin Lispro (Admelog) 1 Unit/0.01 Ml Unit) 5 unit SC AC [facility] Stop: 01/11/25 07:29 Ondansetron HCl (Ondansetron Inj 2 Mg/Ml Inj 2 Ml) 4 mg IVP Q6H PRN; Protocol PRN Reason: NAUSEA OR VOMITING Stop: 01/10/25 23:30 Sennosides (Senna Tablet) 1 tab PO QDAY PRN; Protocol PRN Reason: constipation Stop: 01/10/25 23:30 Discontinued Medications Hydralazine HCl (Hydralazine Inj 20 Mg/Ml Vial) 10 mg IVP X1 ONE Stop: 12/11/24 23:39 Sodium Chloride (Ns) 1,000 mls @ 999 mls/hr IV .Q1H1M ONE Stop: 12/11/24 22:05 Last Infusion: 12/11/24 22:55 Dose: Infused Sodium Chloride (Ns) 1,000 mls @ 999 mls/hr IV .Q1H1M ONE Stop: 12/11/24 22:06 Last Infusion: 12/11/24 22:55 Dose: Infused Morphine Sulfate (Morphine Sulf Inj 10 Mg/Ml Vial) 4 mg IVP X1 ONE Stop: 12/11/24 21:06 Last Admin: 12/11/24 21:45 Dose: 4 mg Ondansetron HCl (Ondansetron Inj 2 Mg/Ml Inj 2 Ml) 4 mg IVP X1 ONE; Protocol Stop: 12/11/24 21:06 Last Admin: 12/11/24 21:45 Dose: 4 mg Assessment & Plan Assessment Nicholas Damian is a 74-year-old male with a PMH of T2DM, hypertension, degenerative disc disease, diabetic peripheral neuropathy, and benign prostatic hyperplasia who presents today with diarrhea and abdominal pain. Patient was admitted for the work-up and management of hypertensive urgency, diarrhea, and abdominal pain. #Hypertensive urgency Upon admission, patient met criteria for hypertensive urgency with a BP of 183/77 (MAP of 112) but without evidence of acute target organ damage. Patient denied any hypertensive symptoms such as headache, shortness of breath, chest pain, or vision changes. Plan: -Started IV HYDRALAZINE 10 mg q6HR prn for hypertension -Consider outpatient workup for possible obstructive sleep apnea (patient has slight erythrocytosis (RBC 16.3) with hypertension and T2DM and RODGER risk factors) #Acute nonbloody diarrhea #Abdominal pain #Nausea Working Dx: possibly 2/2 Ozempic use Differential Dx: viral gastroenteritis (most commonly Norovirus), irritable bowel syndrome (diarrhea-predominant), bacterial diarrhea (most commonly Salmonella, Campylobacter, and Shigella), parasitic diarrhea (most commonly Giardia, Cryptosporidium, and E. histolytica), hyperthyroidism, inflammatory bowel disease Upon admission, patient was afebrile without hypovolemic signs presenting with diarrhea productive of liquid, yellow stool occurring 5-6x a day for 5 days along with epigastric abdominal pain and appetite loss. In the setting of isolated diarrheal symptoms in an immunocompetent individual with abdominal pain and without febrile signs or recent travel, the most plausible working diagnosis at this moment in time is that patient's diarrhea, abdominal pain. and nausea is 2/2 use of Ozempic, whose most common side effects include all three of these presentations. Plan: -Ordered stool culture and WBC -Ordered stool Giardia antigen, Helicobacter pylori Antigen, Norovirus -Started IV PROTONIX 40 mg qD prn for symptomatic treatment of GERD-like symptoms -Started PO LOPERAMIDE 2 mg q6HR prn for symptomatic treatment of diarrhea -Started IV ZOFRAN 4 mg q6HR prn for symptomatic treatment of nausea -Consider patient education on eating less at once and not too close to bedtime to reduce possible side effects from OZEMPIC #Chronic health problems #Asthma #T2DM Plan: -Restarted home medications: ALBUTEROL inhaler -Started on INSULIN sliding scale Hospital Management: Disposition: undergoing work-up and management of hypertensive urgency, diarrhea, and abdominal pain Diet: carbohydrate consistent low GI Prophylaxis: none Bowel Prophylaxis: senna DVT Prophylaxis: heparin CODE STATUS: Full Code I have examined the patient and conferred with my attending, Dr. Simental, and my senior resident, Dr. Engle, regarding them. Charles Long, DO PGY-1 Internal Medicine Attending Provider Attestation/Addendum I reviewed labs, imaging, EKG, home medications and prior available records. Face to face evaluation was performed by me. I have personally examined the patient and discussed assessment and plan with the IM team. I reviewed the resident note and agree with the plan with exceptions as below. 74-year-old male with history of type 2 diabetes mellitus, essential hypertension, and hyperlipidemia, who presented with a chief complaint of abdominal pain and diarrhea. Epigastric pain Abdominal pain Acute diarrhea Nausea without vomiting Type 2 diabetes mellitus on insulin Essential hypertension The etiology is the diarrhea can be due to acute gastroenteritis versus medication side effect. Less likely bacterial in the setting of absence of blood/mucus The epigastric pain can be due to the diarrhea itself or peptic ulcer disease Patient is on Ozempic which can cause his symptoms Start IV hydration Loperamide as needed Send stool studies Started the patient on insulin long-acting plus sliding scale insulin. Monitor fingerstick Start IV Protonix 40 daily
[2024-12-12] MEDS: Magnesium Sulfate 4 GM Ivpb 4 GM/50 ML BAG IV (00:18)
[2024-12-12] MEDS: hydrALAZINE INJ 20 MG/ML VIAL 10 MG IVP (00:20)
[2024-12-12] MEDS: RINGERS LACTATED 1000 ML 1,000 ML 75 ML IV (00:20)
[2024-12-12] MEDS: LOPERAMIDE 2 MG CAPSULE PO ×2 (03:10→09:37)
[2024-12-12 03:41] LABS: Collection Type, Urine Clean Catch
[2024-12-12 04:08] LABS: Bilirubin,Urine Negative (Negative); Blood,Urine Negative (Negative); Clarity,Urine Clear (Clear/Hazy); Color,Urine Lt-Yellow (Lt Yel-Yel); Culture Indicated,Urine Not Indicated; Glucose, Urine 1+ (Negative); Hyaline Casts,Urine < 1 /hpf (0-1); Ketones,Urine Negative (Negative); Leukocyte Esterase,Urine Negative (Negative); Nitrite,Urine Negative (Negative); PH,Urine 5.0 (5.0-7.0); Protein,Urine 1+ (Neg - Trace); RBC,Urine 1 /hpf (0-3); Specific Gravity,Urine 1.015 (1.001-1.035); Squamous Epithelial Cell,Urine < 1 /hpf (0-5); Urobilinogen,Urine Negative mg/dL (0.0-1.0); WBC,Urine 1 /hpf (0-5)
[2024-12-12 06:37] LABS: Basophils # (Auto) 0.1 Thou/mm3 (0.0-0.2); Basophils % (Auto) 1 % (0-2.5); Eosinophils # (Auto) 0.3 Thou/mm3 (0.0-0.5); Eosinophils % (Auto) 5 % (0-10); Hematocrit 43.6 % (41.0-53.0); Hemoglobin 14.7 g/dL (13.5-16.0); Immature Granulocytes Auto 0.07 Thou/mm3 (0.00-0.00); Lymphocytes # (Auto) 2.2 Thou/mm3 (1.0-4.8); Lymphocytes % (Auto) 30 % (10-50); Mean Corpuscular HGB Conc 33.7 g/dl (31.0-37.0); Mean Corpuscular Hemoglobin 28.3 pg (25.0-35.0); Mean Corpuscular Volume 84 fL (80-100); Monocytes # (Auto) 0.7 Thou/mm3 (0.0-0.8); Monocytes % (Auto) 9 % (0-12); Neutrophils # (Auto) 4.0 Thou/mm3 (1.8-7.7); Neutrophils % (Auto) 54 % (37-80); Nucleated Red Blood Cell # 0.00 Thou/mm3 (0.00-0.00); Nucleated Red Blood Cell % 0 /100 WBC (0); Platelet Count 183 Thou/mm3 (140-440); RDW Standard Deviation 43.1 fL (35.1-43.9); Red Blood Count 5.20 Miln/mm3 (4.50-5.90); White Blood Count 7.3 Thou/mm3 (3.8-10.6)
[2024-12-12 07:16] LABS: Alanine Aminotransferase 8 U/L (10-49); Albumin, Serum 3.9 gm/dL (3.4-4.8); Albumin/Globulin Ratio 1.6 (1.2-2.2); Alkaline Phosphatase 39 U/L (46-116); Anion Gap 8 (7-16); Aspartate Amino Transferase 13 U/L (0-34); BUN/Creatinine Ratio 13 Ratio (12-20); Bilirubin,Total 0.5 mg/dL (0.3-1.2); Blood Urea Nitrogen 20 mg/dL (9-23); Calcium 8.9 mg/dL (8.3-10.6); Calcium (Corrected) 9.0 mg/dL (8.5-10.1); Carbon Dioxide 23.8 mMol/L (20.0-31.0); Chloride 108 mMol/L (98-107); Creatinine (Component) 1.6 mg/dL (0.6-1.3); Estimated Creatinine Clearance 40.4 mL/min (>60); Globulin 2.4 gm/dL (2.3-3.5); Glucose 118 mg/dL (74-106); Osmolality,Calculated 283 (275-295); Potassium 4.2 mMol/L (3.4-5.1); Sodium 140 mMol/L (136-145); Total Protein 6.3 gm/dL (5.7-8.2); eGFR 44 See Note
[2024-12-12] MEDS: HEPARIN SOD INJ 5000 UNIT/ML VIAL SC (08:21)
[2024-12-12] MEDS: INSULIN LISPRO (AdmeLOG) 1 UNIT/0.01 ML UNIT 5 UNIT SC (08:21)
[2024-12-12 09:25] LABS: Magnesium 1.8 mg/dL (1.6-2.6); Phosphorous 2.9 mg/dL (2.4-5.1)
[2024-12-12] MEDS: ONDANSETRON INJ 2 MG/ML INJ 2 ML 4 MG IVP (09:37)
--- NOTE | 2024-12-12 13:50 | ESDS_ITS ---
<Statement entered by Rebecca Morgan DO - 12/13/24 08:13> I, Rebecca Morgan DO, attest that I was physically present for the maharaj portions of the service and evaluated the patient with the resident and I reviewed and discussed the case with the resident and agree with the resident's findings and plans of care as documented above <Statement entered by Nawaf Sanchez MD - 12/12/24 17:16> Patient seen and examined at bedside. I discussed and supervised with the international logistics manager physician who took care of this patient. I personally saw and examined the patient. I agree with most of the assessment and plan. Plan of care discussed with attending Dr. Morgan. Nawaf Sanchez MD PGY-2 Planned Discharge Date 12/12/24 DS: Providers Provider Date of admission: 12/11/24 23:49 Primary care physician: Physician No Primary/Family Admitting Provider: Jaydon Simental MD Attending Provider on Admission: Jaydon Simental MD Attending Provider on DC: Dr. Morgan Discharging Provider: RESIDENT Jim DS: Diagnosis Problem List Completed Was Problem List Reviewed/Reconciled?: Yes Hospital Course Hospital Course Hospital course: Mr. Nicholas Damian is a 74-year-old male with a history of type 2 diabetes mellitus, hypertension, benign prostatic hyperplasia, degenerative disc disease, and diabetic peripheral neuropathy who presented with 5 days of watery, non- bloody yellow diarrhea occurring 5?6 times per day. His symptoms were associated with diffuse abdominal pain most prominent in the midepigastric region, as well as nausea and poor appetite. He denied vomiting, fever, chills, blood or mucus in stool, recent travel, antibiotic use, or sick contacts. Of note, he had recently started Ozempic, which raised suspicion for a medication-related gastrointestinal side effect. In the ED, he was found to have hypertensive urgency with a BP of 183/77, without evidence of acute end-organ damage. Laboratory workup revealed acute kidney injury (Cr 1.9), hyperglycemia (glucose 139), and 3+ glucose and 2+ protein on urinalysis. Imaging- including CT chest/abdomen/pelvis, gallbladder ultrasound, and chest X-ray?was unremarkable. He received IV morphine, Zofran, hydralazine, magnesium, and two liters of normal saline. Maintenance fluids with Lactated Ringer?s were started. He was admitted to the internal medicine service for management and further eval uation. His JEANA improved with IV fluids (Cr downtrended to 1.6 by day 2), and his blood glucose was managed with a sliding scale insulin regimen. Stool studies were sent?including culture, Giardia antigen, Norovirus antigen, H. pylori antigen, calprotectin, and WBCs. WBC in stool returned negative, while others remain pending. U-tox was negative. Throughout his hospital stay, the patient continued to experience 3 episodes of diarrhea daily without blood or mucus. Abdominal pain remained mild to moderate in intensity, localized to the midepigastric region. Nausea persisted intermittently and was managed effectively with PRN Zofran. His niece reported episodes of lightheadedness when standing, though the patient remained hemodynamically stable and continued to make adequate urine. His blood pressure remained mildly elevated but without symptoms or end-organ findings. No fever, chest pain, or respiratory symptoms were noted. Given the overall stability and gradual improvement, Ozempic was held indefinitely, and discharge planning was initiated. Diagnoses During Admission #Acute Nonbloody Diarrhea- likely from GLP1 increased dose #Midepigastric Abdominal_Pain #Nausea #Hypertensive Urgency #Acute Kidney Injury #Type 2 Diabetes Mellitus #Benign Prostatic Hyperplasia #Degenerative Disc Disease #Diabetic Peripheral Neuropathy Discharge Plan -We stopped your ozempic which might be reason for your loose stool -Take loperamide as needed for loose stool encourage to drink water/hydrate -Take home medications as prescribed -Follow up with your PCP as outpatient within a week -In case of emergency call 911 or come back to the ED ----- Plan discussed with attending physician Dr. Morgan and senior resident Dr. Chris MD PGY-1 Internal Medicine Time Spent with Patient Time attestation: Total time spent providing and/or coordinating discharge services: Time spent: Greater than 30 minutes Exam Vital Signs Temp Pulse Resp BP Pulse Ox O2 Del Method 97.0 F 70 18 167/99 H 96 Room Air 12/12/24 12:00 12/12/24 12:00 12/12/24 12:12/12/24 12:00 12/12/24 12:00 12/12/24 12:00 Narrative Exam General: Alert, cooperative, no acute distress noted. HEENT: Oral mucosa moist; no pharyngeal erythema or lesions. Cardiovascular: Regular rate and rhythm, no murmurs or gallops. Pulmonary: Lungs clear to auscultation bilaterally; breathing non-labored. Abdomen: Soft, non-distended with mild diffuse tenderness, most prominent in the midepigastric region. No rebound or guarding. Hyperactive bowel sounds present. Neurologic: Alert and oriented x3, no focal deficits, moving all extremities. No cerebellar signs Extremities: No cyanosis, clubbing, or edema. Pulses 2+ in radial and posterior tibial bilaterally. Skin: Warm and dry, no rashes or lesions observed. Psych: Appropriate affect, normal speech, cooperative. Discharge Plan Plan Patient Disposition: HOME (Self Care) Patient condition on transfer: Stable Care Plan Goals: We stopped your ozempic which might be reason for your loose stool Take loperamide as needed for loose stool encourage to drink water/hydrate Take home medications as prescribed Follow up with your PCP as outpatient within a week In case of emergency call 911 or come back to the ED Prescriptions/Referrals Prescriptions/Med Rec: New loperamide 2 mg capsule 2 mg PO Q6H PRN (Reason: loose stool) Qty: 30 0RF Continued Tradjenta 5 mg Tablet 5 mg PO QDAY amlodipine 5 mg tablet 2.5 mg PO DAILY Patient Comments: TAKE 1 TABLET BY MOUTH EVERY DAY IN THE EVENING FOR HIGH BLOOD PRESSURE insulin glargine U-300 conc [Toujeo Max U-300 SoloStar] 300 unit/mL (3 mL) insulin pen 34 unit subcut QDAY rosuvastatin 20 mg tablet 20 mg PO .night Patient Comments: TAKE 1 TABLET (20 MG) BY ORAL ROUTE NIGHTLY FOR HIGH CHOLESTEROL doxazosin 2 mg tablet 2 mg PO HS dapagliflozin propanediol [Farxiga] 5 mg tablet 5 mg PO DAILY losartan 50 mg tablet 50 mg PO DAILY Patient Comments: TAKE 1 TABLET (50 MG) BY ORAL ROUTE ONCE DAILY FOR HIGH BLOOD PRESSURE aspirin [Adult Low Dose Aspirin] 81 mg tablet,delayed release (DR/EC) 81 mg PO Q4H PRN (Reason: pain) Discontinued Ozempic 0.25 mg or 0.5 mg (2 mg/3 mL) pen injector 0.25 mg subcut QWEEK Rx Instructions: for 4 weeks Referrals: No Primary/Family,Physician [Primary Care Provider] - Patient/Caregiver Discharge Instructions Education Materials: ED Diabetes- Overview, ED Vomiting and Diarrhea ... Print Language: Icelandic Stand Alone Forms: Maya Award Info., Patient Portal Info Letter Discharge Order Discharge Orders: Discharge (Routine); Ordered 12/12/24 Ordered By: Jay Jay Mccormack Quality Discharge Quality Measures VTE prophylaxis
[2024-12-16 07:48] LABS: Giardia Result NOT DETECTED; Norovirus, EIA (Stool)* NOT DETECTED
[2024-12-24 06:44] LABS: Calprotectin, Stool* 64 mcg/g
[2024-12-27 06:23] LABS: Helicobacter pylori Ag, Stool* NOT DETECTED (NOT DETECTED)
== END 2024-12-12 12:15 | disposition home or self-care (01) | DRG 305 ==
LOC: SERX 23:39 → S3NX 12-12 06:17 → SERHOLD 12-12 06:17
PROVIDERS: Admitting Provider Student in an Organized Health Care Education/Training Program; Emergency Provider Emergency Medicine; Visit Provider Student in an Organized Health Care Education/Training Program
DX: I16.0 Hypertensive urgency (principal); N17.9 Acute kidney failure, unspecified; E78.5 Hyperlipidemia, unspecified; I10 Essential (primary) hypertension; N40.0 Benign prostatic hyperplasia without lower urinary tract symptoms; E11.42 Type 2 diabetes mellitus with diabetic polyneuropathy; R19.7 Diarrhea, unspecified; E11.65 Type 2 diabetes mellitus with hyperglycemia; R10.13 Epigastric pain; R11.2 Nausea with vomiting, unspecified; J45.909 Unspecified asthma, uncomplicated; Z79.4 Long term (current) use of insulin; Z79.82 Long term (current) use of aspirin; Z79.85 Long-term (current) use of injectable non-insulin antidiabetic drugs
CPT/HCPCS: 36415; 71045; 71250; 74176; 76705; 80053; 81001; 82150; 82248; 83605; 83690; 83735; 83993; 84100; 84145; 85025; 85652; 86140; 87015; 87040; 87045; 87046; 87205; 87329; 87338; 87400; 87449; 87811; 87899; 94664; 96361; 96374; 96375; 96376; J0360; J1644; J1815; J2270; J2405; J2470; J3475; J7030; J7120; A9270

== ENCOUNTER → 2025-01-22 | Outpatient (CLI) | payer MEDICARE, MEDICAID, SELFPAY ==
[2025-01-22 10:01] LABS: Glucose Estimated Average 160 mg/dL (80-131); Hemoglobin A1C 7.2 % Hgb (4.8-6.0)
[2025-01-22 10:05] LABS: Alanine Aminotransferase 12 U/L (10-49); Albumin, Serum 4.2 gm/dL (3.4-4.8); Albumin/Globulin Ratio 1.9 (1.2-2.2); Alkaline Phosphatase 44 U/L (46-116); Anion Gap 9 (7-16); Aspartate Amino Transferase 15 U/L (0-34); BUN/Creatinine Ratio 16 Ratio (12-20); Bilirubin,Total 0.4 mg/dL (0.3-1.2); Blood Urea Nitrogen 28 mg/dL (9-23); Calcium 9.7 mg/dL (8.3-10.6); Calcium (Corrected) 9.7 mg/dL (8.5-10.1); Carbon Dioxide 27.5 mMol/L (20.0-31.0); Cardiac Risk Estimate 4.3 RATIO (4.0-6.7); Chloride 104 mMol/L (98-107); Cholesterol 115 mg/dL (132-200); Creatinine (Component) 1.7 mg/dL (0.6-1.3); Globulin 2.2 gm/dL (2.3-3.5); Glucose 123 mg/dL (74-106); HDL Cholesterol 27 mg/dL (40-60); LDL Cholesterol,Calculated 47 mg/dL (0-130); Osmolality,Calculated 285 (275-295); Potassium 4.3 mMol/L (3.4-5.1); Sodium 140 mMol/L (136-145); Total Protein 6.4 gm/dL (5.7-8.2); Triglycerides 203 mg/dL (30-150); eGFR 41 See Note
== END | disposition home or self-care (01) ==
PROVIDERS: PCP Family Medicine; Referring Provider Family Medicine; Visit Provider Family Medicine
DX: E11.65 Type 2 diabetes mellitus with hyperglycemia (principal); E78.2 Mixed hyperlipidemia; I10 Essential (primary) hypertension
CPT/HCPCS: 36415; 80053; 80061; 83036

== ENCOUNTER → 2025-03-18 | Outpatient (CLI) | payer MEDICARE, MEDICAID, SELFPAY ==
--- NOTE | 2025-03-18 10:54 | XR_ITS ---
Examination: Knee bilateral, 6 views Technique: Knee AP, lateral, oblique each knee total 6 views Date and time of exam: March 18, 2025, 1118 hours INDICATIONS: Knee pain 1 month. FINDINGS: Minimal narrowing medial joint spaces No fractures Minimal osteoarthritis patellofemoral joints No opaque foreign bodies IMPRESSION: Minimal osteoarthritis
== END | disposition home or self-care (01) ==
LOC: CDIM 10:42
PROVIDERS: PCP Family Medicine; Referring Provider Family Medicine; Visit Provider Family Medicine
DX: M17.0 Bilateral primary osteoarthritis of knee (principal)
CPT/HCPCS: 73562

== ENCOUNTER → 2025-04-16 | Outpatient (CLI) | payer MEDICARE, MEDICAID, SELFPAY ==
[2025-04-16 09:42] LABS: Glucose,Fasting 112 mg/dL (74-106)
--- NOTE | 2025-04-16 14:42 | EKG_ITS ---
[facility] Test Date: 2025-04-16 Pat Name: AGUSTIN SIMPSON Department: Room: - Gender: Male [employer]: SRINIVASA : 1950 Requested By: Jaydon Carrion Order Number: [id number] Reading MD: Jaydon Carrion Measurements Intervals [place] Rate: 59 P: 58 AR: 128 QRS: 25 QRSD: 106 T: 74 QT: 408 QTc: 407 Interpretive Statements SINUS BRADYCARDIA INCOMPLETE RIGHT BUNDLE BRANCH BLOCK [90+ ms QRS DURATION, TERMINAL R IN V1/V2, 40+ ms S IN I/aVL/V4/V5/V6] Compared to ECG 10/22/2024 09:43:32 Sinus rhythm no longer present /store/S0/[id number].pdf
== END | disposition home or self-care (01) ==
LOC: COPL 08:26
PROVIDERS: PCP Family Medicine; Referring Provider Student in an Organized Health Care Education/Training Program; Visit Provider Student in an Organized Health Care Education/Training Program
DX: Z01.818 Encounter for other preprocedural examination (principal); H25.811 Combined forms of age-related cataract, right eye; Z01.810 Encounter for preprocedural cardiovascular examination
CPT/HCPCS: 36415; 82947; 93005

== ENCOUNTER → 2025-05-06 | Outpatient (CLI) | payer MEDICARE, MEDICAID, SELFPAY ==
[2025-05-06 10:09] LABS: Glucose Estimated Average 169 mg/dL (80-131); Hemoglobin A1C 7.5 % Hgb (4.8-6.0)
[2025-05-06 10:19] LABS: Alanine Aminotransferase 10 U/L (10-49); Albumin, Serum 4.5 gm/dL (3.4-4.8); Albumin/Globulin Ratio 1.6 (1.2-2.2); Alkaline Phosphatase 39 U/L (46-116); Anion Gap 7 (7-16); Aspartate Amino Transferase 14 U/L (0-34); BUN/Creatinine Ratio 13 Ratio (12-20); Bilirubin,Total 0.4 mg/dL (0.3-1.2); Blood Urea Nitrogen 23 mg/dL (9-23); Calcium 9.5 mg/dL (8.3-10.6); Calcium (Corrected) 9.5 mg/dL (8.5-10.1); Carbon Dioxide 29.9 mMol/L (20.0-31.0); Cardiac Risk Estimate 3.6 RATIO (4.0-6.7); Chloride 107 mMol/L (98-107); Cholesterol 107 mg/dL (132-200); Creatinine (Component) 1.8 mg/dL (0.6-1.3); Globulin 2.8 gm/dL (2.3-3.5); Glucose 110 mg/dL (74-106); HDL Cholesterol 30 mg/dL (40-60); LDL Cholesterol,Calculated 47 mg/dL (0-130); Osmolality,Calculated 291 (275-295); Potassium 4.6 mMol/L (3.4-5.1); Sodium 144 mMol/L (136-145); Total Protein 7.3 gm/dL (5.7-8.2); Triglycerides 148 mg/dL (30-150); eGFR 38 See Note
== END | disposition home or self-care (01) ==
LOC: COPL 08:30
PROVIDERS: PCP Family Medicine; Referring Provider Family Medicine; Visit Provider Family Medicine
DX: I12.9 Hypertensive chronic kidney disease with stage 1 through stage 4 chronic kidney disease, or unspecified chronic kidney disease (principal); E11.22 Type 2 diabetes mellitus with diabetic chronic kidney disease; N18.32 Chronic kidney disease, stage 3b; E78.2 Mixed hyperlipidemia; E11.69 Type 2 diabetes mellitus with other specified complication
CPT/HCPCS: 36415; 80053; 80061; 83036